=== PATIENT | female | born 1945 | race Caucasian/White ===

== ENCOUNTER 2016-04-19 01:34 | Inpatient (IN) | payer OTHER ==
--- NOTE | 2016-04-19 02:28 | PROVIDER DOCUMENTATION ---
HPI-Respiratory General - General Source: patient - History of Present Illness-Resp Quality of Pain: reports: none Severity in ED: reports: mild Onset/Duration: reports: this morning Timing: reports: intermittent Episode Frequency: occasional episodes Associated Symptoms: reports: cough, shortness of breath, short of breath, wheezing. denies: chest pain/soreness, heart racing, hurts to breathe, hyperventilating, lightheadedness, sore throat, sweaty Similar Symptoms Previously?: Yes <Mao Farmer - Last Filed: 04/19/16 02:48> <Rody Collins - Last Filed: 04/19/16 07:34> - General Chief Complaint: General Adult Stated Complaint: sob Time Seen by Provider: 04/19/16 01:58 Allergies/Adverse Reactions: Patient Allergies Allergy/AdvReac Type Severity Reaction Status Date / Time Penicillins Allergy Mild RASH Verified 04/19/16 03:16 codeine [Codeine] Allergy Unknown Verified 04/19/16 03:16 metronidazole [From Flagyl] Allergy Unknown Verified 04/19/16 03:16 Metronidazole HCl * Allergy Unknown Verified 04/19/16 03:16 [From Flagyl] Sulfa (Sulfonamide Allergy Unknown Verified 04/19/16 03:16 Antibiotics) [Sulfa(Sulfonamide Antibiotics)] benzathine Allergy Unknown Uncoded 04/19/16 03:16 Home Medications: Home Medication List Medication Instructions Recorded Confirmed Last Taken Type Albuterol Sulfate [Proair Hfa] 2 puff IH PRN PRN 01/14/16 04/19/16 04/18/16 History Apixaban [Eliquis] 5 mg PO BID 01/14/16 04/19/16 04/18/16 History Dicyclomine [Bentyl] 10 mg PO BID 01/14/16 04/19/16 04/18/16 History Furosemide [Lasix] 60 mg PO BID 01/14/16 04/19/16 04/18/16 History Hydroxyzine HCl 25 mg PO Q6H PRN PRN 01/14/16 04/19/16 04/18/16 History Levothyroxine [Synthroid] 175 microgm PO DAILY 01/14/16 04/19/16 04/18/16 History Metformin HCl 1,000 mg PO BID 1204/19/16 04/18/16 History Nitroglycerin [Nitrostat] 0.4 mg SL PRN PRN 01/14/16 04/19/16 04/18/16 History Omeprazole 20 mg PO DAILY 01/14/16 04/19/16 04/18/16 History Ondansetron [Zofran] 4 mg PO Q8H PRN PRN 01/14/16 04/19/16 04/18/16 History Polyethylene Glycol 3350 17 gm PO QHS 01/14/16 04/19/16 04/18/16 History Ranolazine [Ranexa] 1,000 mg PO BID 01/14/16 04/19/16 04/18/16 History Sennosides/Docusate Sodium [Senna 4 tab PO BID 01/14/16 04/19/16 04/18/16 History Plus Tablet] Diltiazem L.a. [Cardizem LA] 120 mg PO DAILY #90 tablet 01/22/16 04/19/16 Rx Atorvastatin Calcium [Lipitor] 80 mg PO QHS 02/07/16 04/19/16 04/18/16 History [place]-3 Fatty Acids/Fish Oil [Fish 1 each PO BID 02/07/16 04/19/16 04/18/16 History Oil 1,000 mg Capsule] Sucralfate [Carafate] 1 gm PO 4XDAY 02/07/16 04/19/16 04/18/16 History Aspirin 81 mg PO DAILY #0 chewtab 02/08/16 04/19/16 04/18/16 Rx Alprazolam 0.5 mg PO BID PRN 03/18/16 04/19/16 04/18/16 History Insulin Glargine [Lantus] 30 unit SUBQ QHS 03/18/16 04/19/16 04/18/16 History Metoclopramide HCl [Reglan] 5 mg PO TID 03/18/16 04/19/16 04/18/16 History Potassium Chloride 10 meq PO DAILY 03/18/16 04/19/16 04/18/16 History Prednisone 40 mg PO DAILY 03/18/16 04/19/16 04/18/16 History Tolterodine [Detrol] 4 mg PO HS 02/08/2504/19/16 04/18/16 History Oxycodone HCl/Acetaminophen 1 each PO 4XDAY PRN PRN #20 tablet 03/24/1604/18/16 Rx [Percocet 5-325 mg Tablet] Benzonatate 200 mg PO Q4H PRN 04/19/16 04/19/16 04/18/16 History Fluticasone/Salmeterol [Advair 1 each IH BID 04/19/16 04/19/16 04/18/16 History 250-50 Diskus] Formoterol Fumarate [Foradil] 12 mcg IH BID 04/19/16 04/19/16 04/18/16 History LISINOpril [Prinivil] 5 mg PO DAILY 04/19/16 04/19/16 04/18/16 History Levalbuterol Neb [Xopenex Neb] 1.25 mg INH Q4H PRN PRN 04/19/16 04/19/16 History Megestrol Acetate [Megace] 400 mg PO DAILY 04/19/16 04/19/16 04/18/16 History Pregabalin [Lyrica] 75 mg PO QHS 04/19/16 04/19/16 04/18/16 History Tiotropium Bailey Inhaler 18 mcg IH DAILY 04/19/16 04/19/16 Unknown History [Spiriva] - History of Present Illness-Resp Nature of Presenting Problem: Pt is a 70 yof who presents to ER via EMS with CC of sob/chest pain. Pt reports that she woke up this am feeling sob, checked her O2 sat at home and reports it was 92% and was unable to get comfortable, became worried throughout the day and called EMS. On exam, pt reports that her symptoms have all resolved and would like to go home if her labs are normal. (Mao Farmer) Review of Systems - Adult - REVIEW OF SYSTEMS - ADULT Constitutional: denies: chills, fever, fatique, night sweats, weight gain, weight loss Eyes: reports: no symptoms reported Ears, Nose, Mouth & Throat: reports: no symptoms reported Cardiovascular: denies: chest pain, edema, irregular heart rate, palpitations, poor circulation, syncope Respiratory: reports: shortness of breath. denies: chronic cough, cough, dyspnea on exertion, excessive sputum production, hemoptysis, pleurisy, wheezing Gastrointestinal: denies: abdominal pain, constipation, diarrhea, nausea, vomiting Genitourinary: reports: no symptoms reported Musculoskeletal: reports: no symptoms reported Integumentary: reports: no symptoms reported Neurological: reports: no symptoms reported Psychiatric: reports: no symptoms reported Endocrine: reports: no symptoms reported Hematologic/Lymphatic: reports: no symptoms reported Allergic/Immunologic: reports: no symptoms reported All Other Systems: Reviewed and Negative <Mao Farmer - Last Filed: 04/19/16 02:48> Past History - Adult - PAST MEDICAL HISTORY-ADULT Review of Records: reports: Nursing Assessment Review, Medications Reviewed Cardiovascular: reports: CAD, CHF, HTN, RI Respiratory: reports: COPD (end stage), other (O2 dependent) Musculoskeletal: reports: intervertebral disc disease, osteoporosis Psychiatric: reports: anxiety Endocrine/Immune: reports: Diabetes, thyroid disorder Additional History: 3L of home O2 - PRIOR SURGERIES/PROCEDURES Surgical/Procedure History: reports: CABG, cholecystectomy, hysterectomy, joint replacement, breast - PRIOR HOSPITALIZATIONS Prior Hospitalizations: reports: psychiatric or rehab (rehab 2 mos ago) - IMMUNIZATION STATUS Childhood Immunizations: See Nurse Assessment Flu Vaccine: See Nurse Assessment <Mao Farmer - Last Filed: 04/19/16 02:48> Physical Exam-General - PHYSICAL EXAM-ADULT Initial Vital Signs Reviewed: Yes - CONSTITUTIONAL General Appearance: appears well, alert, no apparent distress. negative: mild distress, moderate distress, lethargic, slow to respond, obtunded, combative - NECK Neck: non-tender, full range of motion, supple. negative: limited range of motion, lymphadenopathy - RESPIRATORY Respiratory: chest non-tender, decreased breath sounds (Left lower lung base). negative: lungs clear, normal breath sounds - CARDIOVASCULAR Cardiovascular: normal peripheral pulses, regular rate, rhythm. negative: bradycardia, tachycardia, irregularly irregular - GASTROINTESTINAL (ABDOMEN) Abdominal Exam: normal bowel sounds, non tender, soft. negative: abnormal bowel sounds, tenderness, mass - MUSCULOSKELETAL Extremity: normal range of motion, non-tender, erythema (LLE), swelling (LLE). negative: normal gait - SKIN Integumentary: erythema (LLE (not new symptom)) - NEUROLOGIC Neurologic: grossly normal, no motor/sensory deficits. negative: focal weakness , motor weakness, sensory deficit - PSYCHIATRIC Psych/Mental Status: normal mood/affect, normal thought content, normal thought process, oriented x 3 <Mao Farmer - Last Filed: 04/19/16 02:48> Progress - EKG 1 Time of EKG reading by physician:: 02:40 EKG Read and Signed by:: Yogi Garcia EKG Interpretation (*Must complete 3 of following elements*): Abnormal (RBBB; Lateral infarct, age undetermined; T wave abnormality, consider inferior ischemia) Rate: 83 Rhythm: Sinus rhythm with short [place] with PSVC and with occasional PVC <Mao Farmer - Last Filed: 04/19/16 02:48> <Rody Collins - Last Filed: 04/19/16 07:34> - PLAN OF CARE/RESULTS Progress/Plan/Lab Results: pt handed off to me by dr garcia to follow up ct. reeval indicates ct neg for pe however pt with diffuse wheezing cough pt on 3l o2 nasal canula however o2 sat declines to 87%. steroids given and additional breathing treatment hospitalist dr moreno accepted for admission 730am. (Rody Collins) Departure - Departure Certified Medical Emergency: Emergent <Mao Farmer - Last Filed: 04/19/16 02:48> - Departure Time of Disposition Order: 07:34 Certified Medical Emergency: Emergent - Critical Care Note Total Time (mins): 35 Critical Care Statement: This patient required my direct personal management to treat or rule out processes, the absence of which, could potentiallly result in sudden, clinically significant life or limb threatening deterioration. <Rody Collins - Last Filed: 04/19/16 07:34> - Departure DIAGNOSIS: SOB (shortness of breath), COPD exacerbation, Respiratory distress Disposition: ADMITTED INPATIENT 09 Condition: Stable Additional Instructions: ED Follow Up Instructions: You have been treated by a care provider in the Emergency Department. These instructions are being provided to you so you can have an understanding of how to care for yourself upon discharge. Upon discharge from the Emergency Department, you are responsible for making arrangements for follow-up care by a physician of your choice. Take all prescribed medications as directed. Return to the Emergency Department immediately for any new or worsening symptoms. You may call the Physician Referral phone number at [phone] to obtain a list of Physicians who are taking new patients. Attestation - Scribe Verification/Attestation Scribe:: Mao Farmer Acting as Scribe for:: Yogi Garcia Scribe documention review:: This chart was documented by a scribe and accurately reflects the service the provider performed and the decisions made by the provider. <Mao Farmer - Last Filed: 04/19/16 02:48> Physician Attestation
[2016-04-19 03:01] LABS: MANUAL DIFF NEEDED? NO
[2016-04-19 03:15] LABS: BASO% 0.4 % (0.0-0.8); EOS# 0.06 X1000 (0.0-0.7); EOS% 1.2 % (0.0-10.0); HEMATOCRIT 36.7 % (37.0-47.0); HEMOGLOBIN 10.9 g/dL (12.0-16.0); IMM GRAN# 0.02 X1000 (0.0-0.04); IMM GRAN% 0.4 % (0.0-0.5); LYMPH# 1.96 X1000 (1.2-3.4); LYMPH% 39.3 % (20.5-51.1); MCHC 29.7 g/dL (33-37); MCV 80.8 FL (81-99); MONO# 0.58 X1000 (0.11-0.59); MONO% 11.6 % (1.7-9.3); MPV 10.8 FL (7.4-10.4); NEUT% 47.1 % (42.2-75.2); PLT 197 X1000 (130-400); RBC 4.54 XMIL (4.2-5.4)
[2016-04-19 03:22] LABS: INR 1.05; PROTIME 10.7 Seconds (9.2-11.7); PTT 24.2 Seconds (22.0-36.0)
[2016-04-19 03:31] LABS: AGAP 12; ALKALINE PHOSPHATASE 54 U/L (32-104); BUN 11 mg/dL (8-22); CALCIUM 9.2 mg/dL (8.8-10.2); CHLORIDE 92 mmol/L (98-107); CK PROFILE 69 U/L (24-173); COSMO 270; GOT 15 U/L (10-30); GPT < 5 U/L (10-36); MAGNESIUM 1.9 mg/dL (1.5-2.7); POTASSIUM 3.8 mmol/L (3.5-5.1); SODIUM 132 mmol/L (136-145); TCO2 28 mmol/L (25-35); TOTAL BILIRUBIN 0.22 mg/dL (0.20-1.00); TOTAL PROTEIN 6.8 g/dL (6.3-8.3)
[2016-04-19] MEDS ORDERED: LASIX IV ONE (03:54)
[2016-04-19 04:06] LABS: URINE MICRO REVIEW NEEDED? NO; URINE SOURCE CLEAN CATCH
[2016-04-19 04:08] LABS: BILIRUBIN URINE NEGATIVE (NEGATIVE); BLOOD URINE TRACE (NEGATIVE); COLOR YELLOW; GLUCOSE URINE 70 mg/dL (NEGATIVE); LEUKOCYTES URINE NEGATIVE (NEGATIVE); NITRITE URINE NEGATIVE (NEGATIVE); PH URINE 6.5; PROTEIN URINE 300 mg/dL (NEGATIVE); SP GRAVITY URINE 1.014; TURBIDITY URINE CLEAR (CLEAR); UROBILINOGEN URINE NORMAL (NORMAL)
[2016-04-19 04:53] LABS: UR EPITHELIAL CELLS <10 /HPF (<10); URINE BACTERIA NEGATIVE /HPF; URINE CULTURE NEEDED? NO; URINE WBC <10 /HPF (<10)
[2016-04-19] MEDS ORDERED: DUONEB (A & A) INH ONE ×2 (05:44→07:21)
[2016-04-19] MEDS ORDERED: SOLU-MEDROL IV ONE (07:21)
[2016-04-19] MEDS ORDERED: TESSALON PO PRN (08:43)
[2016-04-19] MEDS ORDERED: VENTOLIN HFA INH PRN (08:43)
[2016-04-19] MEDS ORDERED: ZOFRAN PO PRN (08:43)
[2016-04-19] MEDS ORDERED: HYDROXYZINE PO PRN (08:43)
[2016-04-19] MEDS ORDERED: NITROGLYCERIN SL PRN (08:43)
[2016-04-19] MEDS ORDERED: NICODERM PATCH TD PRN (08:43)
[2016-04-19] MEDS: PERCOCET-5 PO PRN ×2 (08:58→14:41)
--- NOTE | 2016-04-19 08:58 | Diag Imaging Result Document ---
PROCEDURE NAME: ANGIOGRAM/PULMONARY ARTERIES - 04/19/2016 CT ANGIOGRAM OF PULMONARY ARTERIES WITH CONTRAST: Exam performed with intravenous contrast. A dose-reduction protocol was used. Axial and reformatted coronal images are obtained. COMPARISON: Compared with the CT angiogram of pulmonary arteries of 03/08/[address] thorax without contrast 01/18/2016. FINDINGS: There are no filling defects identified in the pulmonary arteries. There is no indication of aortic dissection. There is cardiomegaly with mild interval increase in heart size. There is a calcified granuloma from old granulomatous disease at the left base. There is an 8 mm nodular opacity or scar at the posterior right upper lobe abutting the major fissure. This appears slightly more prominent compared to previous exam, although this could possibly relate to differences in technical factors. There is scarring at the right middle lobe and inferior left lingula. There is no acute consolidation, pleural effusion, or pneumothorax identified. IMPRESSION: 1. No evidence of pulmonary embolism. 2. Cardiomegaly with mild interval increase in heart size. 3. Mild increased prominence of small nodular opacity or scar at posterior right upper lobe abutting the major fissure. Follow-up CT thorax in about 3 months or correlation with PET-CT is recommended. A [facility] physician provided preliminary results at 7:03 a.m. on 04/19/2016. [facility]
[2016-04-19] MEDS ORDERED: PREDNISONE PO SCH (09:00)
--- NOTE | 2016-04-19 09:04 | ED EKG INTERP ---
EKG Interpretation - EKG Time of EKG reading by physician:: 08:10 EKG Read and Signed by:: Rody Collins EKG Interpretation (*Must complete 3 of following elements*): Abnormal Rate: 87 (and premature atrial complexes; left axis deviation; minimal voltave criteria for LVH, may be normal variant) Rhythm: sinus rhythm with short MO with occasional premature ventricular complexes QRS: RBB Attestation - Scribe Verification/Attestation Scribe:: Kimberlee Plata Acting as Scribe for:: Rody Collins Scribe documention review:: This chart was documented by a scribe and accurately reflects the service the provider performed and the decisions made by the provider.
[2016-04-19] MEDS ORDERED: NS NEB INH PRN (09:16)
[2016-04-19] MEDS: BENTYL PO SCH ×2 (09:52→22:05)
[2016-04-19] MEDS: ASPIRIN PO SCH (09:52)
[2016-04-19] MEDS: CARAFATE PO SCH ×4 (09:54→22:04)
[2016-04-19] MEDS: CARDIZEM LA PO SCH (09:54)
[2016-04-19] MEDS: ELIQUIS PO SCH ×2 (09:55→22:05)
[2016-04-19] MEDS: FISH OIL CONCENTRATE PO SCH ×2 (09:56→22:04)
[2016-04-19] MEDS: MEGACE LIQUID PO SCH (09:57)
[2016-04-19] MEDS: PERICOLACE PO SCH ×2 (09:57→22:04)
[2016-04-19] MEDS: PRILOSEC PO SCH (09:59)
[2016-04-19] MEDS: REGLAN PO SCH ×3 (10:00→17:02)
[2016-04-19] MEDS: PRINIVIL PO SCH (10:00)
[2016-04-19] MEDS: RANEXA PO SCH ×2 (10:02→22:04)
[2016-04-19] MEDS: SYNTHROID PO SCH (10:03)
[2016-04-19] MEDS: KEFZOL 2 GM/D5W 50 ML IV SCH ×2 (11:09→17:03)
[2016-04-19] MEDS: HUMALOG SUBQ SCH ×3 (11:27→22:09)
[2016-04-19 11:55] LABS: ALLEN TEST NO; BE 6.3 mmoll (-3.0-3.0); BLOOD TYPE ARTERIAL; DRAW SITE R BRACHIAL; METHB 1.6 % (0.0-1.5); O2(CT) 13.1 mL/dL (15.0-23.0); PCO2(98.6) 42 mmHg (35-45); PO2(98.6) 60 mmHg (60-100); SAMPLE BLOOD; SAO2 94.2 % (95.0-100.0); THB 10.4 g/dL (11.5-17.4); pH(98.6) 7.47 (7.35-7.45)
[2016-04-19 11:56] LABS: MODALITY CANNULA
[2016-04-19] MEDS ORDERED: KEFZOL IV SCH (13:00)
--- NOTE | 2016-04-19 14:16 | HISTORY AND PHYSICAL ---
CHIEF COMPLAINT: "Smothering and shortness of breath." HISTORY OF PRESENT ILLNESS: Mrs. Marlow is a 70-year-old female who is well known to our service. She has a history of COPD requiring oxygen, CAD status post CABG, type 2 diabetes now insulin-dependent and multiple others as well as continued nicotine dependence who presents with fairly acute onset of what seems to be orthopnea and shortness of breath. She states she was in her house last night and had to turn up the heat as it got cold, once the heat was turned up she began to have some shortness of breath, she turned the heat back down and began to feel better. She was able to go to sleep for a little while but woke up around midnight in a state of what she calls smothering. She was short of breath and could not get comfortable. She denied any chest pain. She was not coughing. There was no sputum production. She denies any recent fevers or chills, she is on current IV antibiotics prescribed by Dr. Boswell for right heel infection for which she has had an I and D done by Dr. Malagon a few weeks back. She came to the ER today for evaluation. Her laboratory data is largely unremarkable. She does have elevated proBNP, D-dimer was mildly elevated which prompted a CTA of the chest which reads chronic changes but nothing acute and no PE noted. She does report mild lower extremity edema, orthopnea and shortness of breath so were going to admit her now for CHF exacerbation versus COPD exacerbation. PAST MEDICAL HISTORY: 1. Coronary artery disease. 2. Diabetes mellitus requiring insulin. 3. Congestive heart failure known EF 55%. 4. Chronic left ischial tuberosity pressure ulcer. 5. COPD requiring oxygen. 6. GERD. 7. Obstructive sleep apnea. 8. History of CVA. 9. Nicotine dependence. 10. Recent heel diabetic foot ulcer status post I and D. 11. Atrial fibrillation chronic. SURGICAL HISTORY: CABG, cholecystectomy, hysterectomy, breast reduction, right knee surgery, left heel I and D. SOCIAL HISTORY: Patient continues to smoke a pack to 2 packs of cigarettes a day. She denies alcohol, illicit drug use. She has a common law . FAMILY HISTORY: Noncontributory. REVIEW OF SYSTEMS: Fourteen-point review of systems obtained found to be negative with the exception of the HPI. ALLERGIES: Penicillin, codeine, Flagyl, sulfa, benzathine. HOME MEDICATIONS: Ancef 2 g t.i.d., ProAir HFA 2 puffs inhaled as needed, Xanax 0.5 mg b.i.d. as needed, Eliquis 5 mg b.i.d., Lipitor 80 mg at bedtime, Tessalon Perles every 4 hours as needed, Bentyl 10 mg b.i.d., Advair 250/50 Diskus 1 inhaled b.i.d., Foradil 12 mcg inhaled twice a day, Lasix 60 mg b.i.d., hydroxyzine 25 mg every 6 hours as needed, Lantus 30 units subcu at bedtime, Prinivil 5 mg daily, Xopenex 1.25 mg inhaled every 4 hours as needed, Synthroid 175 mcg daily, Megace 400 mg p.o. daily, metformin 1000 mg b.i.d., Reglan 5 mg t.i.d. Nitrostat 0.4 mg sublingual as needed, fish oil b.i.d., omeprazole 20 mg daily, Zofran 4 mg p.o. every 8 hours as needed, polyethylene glycol 17 g at bedtime, KCl 10 mEq p.o. daily, prednisone 40 mg daily, Lyrica 75 mg p.o. at bedtime, Ranexa 1000 mg b.i.d., Senokot 4 tabs daily, Carafate 1 g 4 times a day, Spiriva 18 mcg inhaled daily, Detrol 4 mg p.o. at bedtime, aspirin 81 mg daily, Cardizem long-acting 120 mg daily, Percocet 5 four times a day as needed for pain. PHYSICAL EXAMINATION: VITAL SIGNS: Blood pressure is 111/51, heart rate is 86, respiratory rate is 24, O2 saturation is 96% on room air, temperature is 98 degrees. GENERAL: This is a chronically ill disheveled-appearing 70-year-old female lying in hospital bed no acute distress. NEUROLOGIC: The patient is awake, alert and oriented. She follows commands without focal deficits. HEENT: Head is atraumatic and normocephalic. Her pupils are equal, round, reactive to light. Oral mucosa is dry. Trachea is midline. No JVD. No carotid bruits. CHEST: Coarse throughout, no increased work of breathing and some mild inspiratory wheezing bilaterally. CV: Regular rate and rhythm. S1-S2 is noted. No murmurs, gallops, clicks, or rubs. GI: Soft, nondistended, nontender. Bowel sounds are positive. EXTREMITIES: 1+ edema, diminished pulses. Right heel wrapped with Peyman bandage that is clean, dry and intact. NEUROVASCULAR: Is intact distally. DIAGNOSTIC DATA: CTA of the chest shows chronic changes nothing acute, chest x-ray over read is pending. EKG atrial fibrillation, rate controlled. Nonspecific ST and T changes diffusely. WBC 4.99, hemoglobin 10.9, hematocrit 36.7, platelet count 197,000. PT 10.7, INR 1.05, sodium 132, potassium 3.8, chloride 92, CO2 28, anion gap 12, BUN 11, creatinine 0.8, glucose 202. LFTs within normal limits. Troponin and CKs are negative. ProBNP 593, albumin 3. UA is negative for any acute process. ASSESSMENT AND PLAN: 1. Acute on chronic respiratory failure: Multifactorial secondary to chronic obstructive pulmonary disease and congestive heart failure exacerbations. We will treat underlying processes and monitor respiratory status closely. 2. Chronic obstructive pulmonary disease exacerbation: Will start the patient on IV steroids and bronchodilators. 3. Metabolic encephalopathy. Will check an ammonia and a head CT without contrast. Neuro checks. 4. Acute on chronic heart failure: Will add IV diuresis and take away her p.o. for now. Monitor strict I's and Os and daily weights. An echocardiogram was done around 6 months ago which showed normal left ventricular ejection fraction . 5. Chronic atrial fibrillation: Chronic and stable, continue home medications including Eliquis. 6. Diabetes mellitus: Chronic and stable, continue her home medications with the exception of her metformin and add pattern sugars and sliding scale insulin. 7. Left heel diabetic foot ulcer: Chronic and stable. Will also continue her Ancef which should cover her COPD exacerbation as well. 8. Gastroesophageal reflux disease: Chronic and stable. Continue home medications. 9. DVT prophylaxis. The patient is on eliquis. Dictated by KEYON Madrigal for Fadia Gr MD The patient was seen and examined by me. I agree with the assessment and plan as dictated. DEBBIE
--- NOTE | 2016-04-19 14:31 | Diag Imaging Result Document ---
PROCEDURE NAME: CHEST-1 VIEW - 04/19/2016 ONE VIEW CHEST: COMPARISON: 03/24/2016. FINDINGS: There is mild cardiomegaly. There are sternal wires from previous surgery again seen. There is scarring and/or subsegmental atelectasis at the right middle lobe and left lingula. There is mild pleural thickening at the left costophrenic sulcus. There is no dense consolidation, substantial pleural effusion, or pneumothorax identified. PICC line remains in place. IMPRESSION: Mild cardiomegaly. Mild scarring or subsegmental atelectasis at right middle lobe and left lingula.
[2016-04-19] MEDS: LASIX IV SCH (17:02)
--- NOTE | 2016-04-19 17:14 | Diag Imaging Result Document ---
PROCEDURE NAME: HEAD W/O CONTRAST - 04/19/2016 CT OF THE HEAD WITHOUT CONTRAST: FINDINGS: A dose reduction protocol was used. Compared to 03/10/2016. There is no evidence of hemorrhage, mass effect, midline shift, or hydrocephalus. There are moderate chronic microvascular ischemic changes. There is no indication of recent infarct, although acute infarcts may not be immediately visible. There is a small calcified meningioma or osteoma at the right frontal region which is stable. IMPRESSION: Moderate chronic microvascular ischemic changes. No visible acute process. No hemorrhage or mass effect.
[2016-04-19] MEDS ORDERED: BENADRYL PO ONE (18:15)
[2016-04-19] MEDS: ADVAIR 250/50 DISKUS INH SCH (19:16)
[2016-04-19] MEDS: XOPENEX NEB INH PRN (19:16)
[2016-04-19] MEDS ORDERED: FORADIL INH SCH (19:30)
[2016-04-19] MEDS ORDERED: LYRICA PO SCH (21:00)
[2016-04-19] MEDS ORDERED: LANTUS SUBQ SCH (21:00)
[2016-04-19] MEDS ORDERED: TYLENOL PO PRN (21:12)
[2016-04-19] MEDS: MIRALAX PO SCH (22:03)
[2016-04-19] MEDS: LIPITOR PO SCH (22:04)
[2016-04-19] MEDS ORDERED: INSULIN PEN NEEDLES ONE (23:00)
[2016-04-19] MEDS: DETROL PO SCH (23:14)
[2016-04-19] MEDS: MYCOSTATIN POWDER TOP SCH (23:16)
[2016-04-20] MEDS: XANAX PO PRN (01:23)
[2016-04-20] MEDS: LASIX IV SCH ×2 (04:38→16:34)
[2016-04-20] MEDS: KEFZOL 2 GM/D5W 50 ML IV SCH ×3 (04:38→17:02)
[2016-04-20] MEDS: REGLAN PO SCH ×3 (06:30→16:34)
[2016-04-20] MEDS: PRILOSEC PO SCH (06:30)
[2016-04-20] MEDS: SOLU-MEDROL IV SCH ×2 (06:31→20:29)
[2016-04-20] MEDS: HUMALOG SUBQ SCH ×4 (06:37→20:31)
[2016-04-20 07:38] LABS: HEMATOCRIT 33.3 % (37.0-47.0); HEMOGLOBIN 9.7 g/dL (12.0-16.0); MCH 23.8 PG (27-31); MCHC 29.1 g/dL (33-37); MCV 81.6 FL (81-99); MPV 11.1 FL (7.4-10.4); RBC 4.08 XMIL (4.2-5.4)
[2016-04-20 07:50] LABS: HEMOGLOBIN A1C 7.7 % (4.8-6.0)
[2016-04-20] MEDS: XOPENEX NEB INH PRN ×4 (08:16→19:25)
[2016-04-20] MEDS: SPIRIVA INH SCH (08:16)
[2016-04-20] MEDS: ADVAIR 250/50 DISKUS INH SCH ×2 (08:17→19:25)
[2016-04-20 08:18] LABS: AGAP 8; BUN 20 mg/dL (8-22); CHLORIDE 94 mmol/L (98-107); COSMO 275; POTASSIUM 3.7 mmol/L (3.5-5.1); SODIUM 131 mmol/L (136-145); TCO2 29 mmol/L (25-35)
[2016-04-20] MEDS: PERCOCET-5 PO PRN ×2 (10:46→20:22)
[2016-04-20] MEDS: RANEXA PO SCH ×2 (10:47→20:22)
[2016-04-20] MEDS: FISH OIL CONCENTRATE PO SCH ×2 (10:47→20:22)
[2016-04-20] MEDS: SYNTHROID PO SCH (10:47)
[2016-04-20] MEDS: PRINIVIL PO SCH (10:48)
[2016-04-20] MEDS: DIFLUCAN PO SCH (10:48)
[2016-04-20] MEDS: CARAFATE PO SCH ×4 (10:48→20:22)
[2016-04-20] MEDS: ELIQUIS PO SCH ×2 (10:48→20:22)
[2016-04-20] MEDS: ASPIRIN PO SCH (10:48)
[2016-04-20] MEDS: CARDIZEM LA PO SCH (10:48)
[2016-04-20] MEDS: PERICOLACE PO SCH ×2 (10:48→20:22)
[2016-04-20] MEDS: BENTYL PO SCH ×2 (10:48→20:22)
[2016-04-20] MEDS: MEGACE LIQUID PO SCH (10:49)
[2016-04-20] MEDS: MYCOSTATIN POWDER TOP SCH ×2 (10:49→20:31)
[2016-04-20] MEDS: NS 1,000 ML IV SCH (12:04)
--- NOTE | 2016-04-20 14:30 | PROGRESS NOTE ---
DATE: 04/20/2016 SUBJECTIVE: The patient is awake and alert. She does complain of some coughing but otherwise states that she feels okay. OBJECTIVE: Vital Signs: Temperature 98 degrees, blood pressure 130/64, heart rate 76, respirations 18, O2 saturation is 97% on 4 L nasal cannula. General: This is an elderly female, lying in bed, in no acute distress. Head: Normocephalic, atraumatic. Heart: S1, S2. Normal. Regular rate and rhythm. Lungs: Coarse breath sounds. No crackles. No rales. Abdomen: Positive bowel sounds. Soft, nontender, nondistended. Extremities: No edema. No cyanosis. No calf tenderness. Neurologic: The patient is alert and oriented x3. No focal neurologic deficits noted. LABS: White blood cell count 4.8, hemoglobin 9.7, hematocrit 33, platelets 190,000. Sodium 131, potassium 3.7, chloride 94, CO2 29, BUN 20, creatinine 0.8, glucose 277. ASSESSMENT AND PLAN: 1. Acute chronic obstructive pulmonary disease exacerbation. Continue on IV steroids, scheduled bronchodilator therapy, and IV antibiotics. 2. Uncontrolled insulin-dependent diabetes mellitus. We will continue on sliding scale insulin. We will also add Levemir. The patient's hemoglobin A1c is 7.7. 3. Tobacco dependence. The patient has been counseled about smoking cessation. 4. Morbid obesity. Aware. 5. Hypertension. Controlled. 6. Anemia. The patient's hemoglobin and hematocrit are stable. 7. Hyponatremia. Will start the patient on gentle IV fluid hydration and repeat the sodium. 8. Hypothyroidism. Continue on Synthroid. 9. Paroxysmal atrial fibrillation. Continue on Cardizem and Eliquis. 10. Will consult physical therapy.
[2016-04-20] MEDS: MUCOMYST 20% INH SCH (19:25)
[2016-04-20] MEDS: LIPITOR PO SCH (20:22)
[2016-04-20] MEDS: DETROL PO SCH (20:23)
[2016-04-20] MEDS: MIRALAX PO SCH (20:24)
[2016-04-20] MEDS ORDERED: LYRICA PO SCH (21:00)
[2016-04-20] MEDS ORDERED: LEVEMIR SUBQ SCH (21:00)
[2016-04-21] MEDS: NS 1,000 ML IV SCH (01:47)
[2016-04-21] MEDS: KEFZOL 2 GM/D5W 50 ML IV SCH ×2 (01:47→09:38)
[2016-04-21] MEDS: XANAX PO PRN (02:16)
[2016-04-21] MEDS: PERCOCET-5 PO PRN (02:16)
[2016-04-21] MEDS: LASIX IV SCH ×2 (03:12→17:05)
[2016-04-21] MEDS: SOLU-MEDROL IV SCH (06:23)
[2016-04-21] MEDS: HUMALOG SUBQ SCH ×4 (06:23→17:02)
[2016-04-21] MEDS: REGLAN PO SCH ×3 (06:23→17:15)
[2016-04-21] MEDS: PRILOSEC PO SCH (06:23)
[2016-04-21 07:42] LABS: HEMATOCRIT 32.3 % (37.0-47.0); HEMOGLOBIN 9.4 g/dL (12.0-16.0); MCH 23.6 PG (27-31); MCHC 29.1 g/dL (33-37); MPV 10.7 FL (7.4-10.4); RBC 3.99 XMIL (4.2-5.4)
--- NOTE | 2016-04-21 07:57 | Diag Imaging Result Document ---
PROCEDURE NAME: CHEST-PORTABLE - 04/21/2016 PORTABLE CHEST X-RAY, 04/21/2016: COMPARISON: 04/19/2016. FINDINGS: Stable right PICC line. Stable cardiomegaly. Stable pulmonary vascular congestion. Stable small infiltrate or scarring at the right hilum. No new infiltrates. IMPRESSION: No change from prior.
[2016-04-21 08:04] LABS: AGAP 11; BUN 22 mg/dL (8-22); CHLORIDE 96 mmol/L (98-107); COSMO 281; POTASSIUM 3.6 mmol/L (3.5-5.1); SODIUM 133 mmol/L (136-145); TCO2 26 mmol/L (25-35)
[2016-04-21] MEDS: SPIRIVA INH SCH (08:13)
[2016-04-21] MEDS: ADVAIR 250/50 DISKUS INH SCH (08:13)
[2016-04-21] MEDS: XOPENEX NEB INH PRN (08:13)
[2016-04-21] MEDS: MUCOMYST 20% INH SCH (08:13)
[2016-04-21] MEDS ORDERED: LEVEMIR SUBQ SCH (09:00)
[2016-04-21] MEDS: PERICOLACE PO SCH (09:32)
[2016-04-21] MEDS: FISH OIL CONCENTRATE PO SCH (09:32)
[2016-04-21] MEDS: SYNTHROID PO SCH (09:32)
[2016-04-21] MEDS: PRINIVIL PO SCH (09:32)
[2016-04-21] MEDS: BENTYL PO SCH (09:32)
[2016-04-21] MEDS: ELIQUIS PO SCH (09:32)
[2016-04-21] MEDS: CARDIZEM LA PO SCH (09:32)
[2016-04-21] MEDS: MEGACE LIQUID PO SCH (09:32)
[2016-04-21] MEDS: DIFLUCAN PO SCH (09:33)
[2016-04-21] MEDS: RANEXA PO SCH (09:33)
[2016-04-21] MEDS: CARAFATE PO SCH ×3 (09:33→17:14)
[2016-04-21] MEDS: ASPIRIN PO SCH (09:33)
[2016-04-21] MEDS: MYCOSTATIN POWDER TOP SCH (09:42)
[2016-04-21] MEDS ORDERED: INSULIN PEN NEEDLES ONE (16:55)
[2016-04-21 17:59] VITALS: BP 119/93
--- NOTE | 2016-04-22 15:17 | DISCHARGE SUMMARY ---
ADMISSION DATE: 04/19/2016 DISCHARGE DATE: 04/21/2016 DISCHARGE DIAGNOSES: 1. Chronic obstructive pulmonary disease exacerbation. 2. Diastolic heart failure. 3. Diabetes, uncontrolled. 4. Right heel ulcer, on IV antibiotics. 5. Morbid obesity. 6. Hypertension. 7. Hyponatremia. 8. Hypothyroidism. 9. Paroxysmal atrial fibrillation. CONSULTATIONS: None. HOSPITAL COURSE: Briefly, this is a 70-year-old female who has been here multiple times. She presents with shortness of breath. She has been on IV Kefzol apparently for right heel ulcer per Dr. Boswell. She came in. CTA showed no PE, no pneumonia, but she had wheezing and some lower extremity edema, so, she was admitted for treatment. She was placed on IV steroids, bronchodilators. She had some confusion on admission which improved with improvement in her respiratory status. She was stabilized. On 04/21/2016, she was breathing at her baseline. Saturations were 97% on 3 L. She was afebrile. Her laboratory work showed a white count 4.5, hemoglobin and hematocrit and 32. Platelets were normal. CMP was okay. Her A1c was 7.7, although she had some mild elevation in her glucose. DISCHARGE MEDICATIONS: 1. Lipitor 80. 2. Sucralfate 1 g q.i.d. 3. Fish oil b.i.d. 4. Xanax 0.5 b.i.d. 5. Detrol 4 at bedtime. 6. Lantus 30 at bedtime. 7. Reglan 5 t.i.d. 8. Klor-Con 10 daily. 9. Prednisone will be a taper; it looks like she is on 40 daily, but I think we will do a 40 for a week, 30 for a week, 20 for a week, 10 daily. 10. q.4. 11. Xopenex q. 4. 12. Advair 1 b.i.d. 13. Foradil 12 b.i.d. 14. Kefzol 2 g IV t.i.d. This dosing is per Dr. Boswell. Need to complete her course. 15. Megace 400 daily. 16. Lyrica 75 daily. 17. Prinivil 5 daily. 18. Spiriva 18 daily. 19. ProAir p.r.n. 20. Hydroxyzine 25 q. 6. 21. Nitrostat p.r.n. 22. Zofran. 23. Eliquis 5 b.i.d. 24. Bentyl 10 b.i.d. 25. Lasix 60 b.i.d. 26. Metformin 1 g b.i.d. 27. Prilosec 20 daily. 28. MiraLAX 17 daily. 29. Ranexa 1 g b.i.d. 30. Senokot 4 b.i.d. 31. Synthroid 175 daily. 32. Aspirin 81 daily. 33. Percocet p.r.n. 34. Cardizem-LA 120 daily. DISCHARGE CONDITION: Stable. PLAN: We did set her up for a Palliative Care consult. We will need to resume her home IV antibiotics as done previously for discharge. Please for copy is Dr. Elbert Diaz initial ER and Dr. wheeler and. TIME SPENT ON DISCHARGE: 32 minutes.
== END 2016-04-21 19:00 | disposition home health service (06) | DRG 190 ==
LOC: ED 01:34 → EDIPHOLD 08:39 → 3N 13:38
PROVIDERS: ATTEND Internal Medicine
DX: J44.1 Chronic obstructive pulmonary disease with (acute) exacerbation (principal); I50.33 Acute on chronic diastolic (congestive) heart failure; J96.10 Chronic respiratory failure, unspecified whether with hypoxia or hypercapnia; E11.621 Type 2 diabetes mellitus with foot ulcer; L97.429 Non-pressure chronic ulcer of left heel and midfoot with unspecified severity; E87.1 Hypo-osmolality and hyponatremia; E11.65 Type 2 diabetes mellitus with hyperglycemia; I11.0 Hypertensive heart disease with heart failure; Z99.81 Dependence on supplemental oxygen; E66.01 Morbid (severe) obesity due to excess calories; D64.9 Anemia, unspecified; I25.10 Atherosclerotic heart disease of native coronary artery without angina pectoris; I48.0 Paroxysmal atrial fibrillation; I25.2 Old myocardial infarction; E03.9 Hypothyroidism, unspecified; K21.9 Gastro-esophageal reflux disease without esophagitis; G47.33 Obstructive sleep apnea (adult) (pediatric); M81.0 Age-related osteoporosis without current pathological fracture; F41.9 Anxiety disorder, unspecified; F17.210 Nicotine dependence, cigarettes, uncomplicated; Z79.899 Other long term (current) drug therapy; Z79.82 Long term (current) use of aspirin; Z79.01 Long term (current) use of anticoagulants; Z79.4 Long term (current) use of insulin; Z86.73 Personal history of transient ischemic attack (TIA), and cerebral infarction without residual deficits; Z68.33 Body mass index [BMI] 33.0-33.9, adult; Z95.1 Presence of aortocoronary bypass graft
CPT/HCPCS: 36415; 51702; 70450; 71010; 71275; 80048; 80053; 81001; 82140; 82306; 82550; 82805; 82948; 83036; 83735; 83880; 84100; 84484; 85025; 85027; 85379; 85610; 85730; 87070; 87077; 87186; 87205; 94640; 94761; 94799; 96365; 96375; J0690; J1815; J1940; J2920; J2930; J7030; J7512; Q9967; S0179

== ENCOUNTER 2016-05-31 01:24 | Inpatient (IN) ==
[2016-05-31] MEDS ORDERED: ADENOCARD ONE (01:27)
[2016-05-31] MEDS ORDERED: ADENOCARD IV ONE ×2 (01:29→01:32)
[2016-05-31] MEDS ORDERED: CARDIZEM ONE ×2 (01:35→01:44)
[2016-05-31] MEDS ORDERED: NS 1,000 ML ONE (01:38)
[2016-05-31] MEDS ORDERED: ASPIRIN PO STA (01:45)
[2016-05-31] MEDS ORDERED: CARDIZEM IV ONE ×2 (01:47→02:42)
[2016-05-31] MEDS ORDERED: DUONEB (A & A) INH ONE (01:52)
[2016-05-31] MEDS ORDERED: MORPHINE IV ONE (01:52)
[2016-05-31] MEDS ORDERED: ZOFRAN IV ONE (01:52)
[2016-05-31 02:10] LABS: MANUAL DIFF NEEDED? NO
[2016-05-31 02:19] LABS: BASO% 0.4 % (0.0-0.8); EOS# 0.04 X1000 (0.0-0.7); EOS% 0.4 % (0.0-10.0); HEMOGLOBIN 10.9 g/dL (12.0-16.0); IMM GRAN# 0.04 X1000 (0.0-0.04); IMM GRAN% 0.4 % (0.0-0.5); LYMPH# 2.28 X1000 (1.2-3.4); LYMPH% 21.4 % (20.5-51.1); MCH 22.2 PG (27-31); MCHC 29.5 g/dL (33-37); MCV 75.5 FL (81-99); MONO# 0.97 X1000 (0.11-0.59); MONO% 9.1 % (1.7-9.3); MPV 10.3 FL (7.4-10.4); NEUT% 68.3 % (42.2-75.2); PLT 230 X1000 (130-400)
[2016-05-31] MEDS ORDERED: CARDIZEM 100 MG/NS 100 MG/100 ML IVPB ONE (02:47)
[2016-05-31 02:58] LABS: AGAP 18; ALBUMIN 3.3 g/dL (3.5-5.0); ALKALINE PHOSPHATASE 106 U/L (32-104); BUN 26 mg/dL (8-22); CALCIUM 8.2 mg/dL (8.8-10.2); CHLORIDE 93 mmol/L (98-107); CK PROFILE 76 U/L (24-173); COSMO 284; GOT 93 U/L (10-30); GPT 44 U/L (10-36); MAGNESIUM 1.9 mg/dL (1.5-2.7); POTASSIUM 4.4 mmol/L (3.5-5.1); SODIUM 132 mmol/L (136-145); TCO2 21 mmol/L (25-35); TOTAL PROTEIN 6.3 g/dL (6.3-8.3)
[2016-05-31] MEDS ORDERED: HUMULIN R SUBQ ONE (03:00)
[2016-05-31 03:25] LABS: INR 1.18 (0.86-1.15); PROTIME 15.3 Seconds (12.1-15.5)
[2016-05-31] MEDS ORDERED: LASIX IV ONE (03:25)
[2016-05-31 03:26] LABS: PTT PL 34.2 Seconds (22.6-43.9)
[2016-05-31] MEDS ORDERED: HUMULIN R (PARKWAY) ONE (03:37)
[2016-05-31] MEDS: CARDIZEM 100 MG/NS 100 MG/100 ML IVPB IV SCH ×3 (07:40→18:43)
[2016-05-31] MEDS ORDERED: LASIX ONE (07:43)
--- NOTE | 2016-05-31 09:27 | EKG Report ---
Test Performed on : 05/31/2016 09:17:21 AM Test Reason : a.flutter vs a.fib Blood Pressure : / mmHG Vent. Rate : 114 BPM Atrial Rate : 127 BPM P-R Int : 192 ms QRS Dur : 146 ms QT Int : 336 ms P-R-T Axes : 000 -72 -04 degrees QTc Int : 463 ms Atrial flutter with 2 to 1 block Left axis deviation Right bundle branch block Minimal voltage criteria for LVH, may be normal variant Abnormal ECG When compared with ECG of 31-MAY-2016 01:36, Sinus rhythm. has replaced Atrial flutter. ST no longer depressed in Inferior leads ST no longer depressed in Lateral leads Confirmed by Lul Gillespie MD ([id number]) on 06/04/2016 9:53:22 PM
--- NOTE | 2016-05-31 09:49 | Diag Imaging Result Document ---
PROCEDURE NAME: CHEST-PORTABLE - 05/31/2016 PORTABLE CHEST: COMPARISON: 04/21/2016. FINDINGS: Previously there was a right sided PICC line. There has been removed. Sternal wires are present. The heart remains enlarged. The patient is rotated to the left. No pleural effusions identified. No consolidation. Mild central vascular prominence similar to the prior exam. IMPRESSION: No significant change.
--- NOTE | 2016-05-31 10:59 | CONSULTATION ---
DATE OF CONSULTATION: 05/31/2016 IMPRESSION: 1. Recurrent atrial flutter with rapid ventricular rate. Patient now with mild tachycardia on intravenous Cardizem. Patient previously on Cardizem CD 120 mg daily. Patient also has been on long-term anticoagulation with Eliquis. 2. Severe chronic obstructive pulmonary disease, oxygen dependent. 3. Chronic ongoing heavy cigarette use. 4. Atherosclerotic coronary disease. 5. Hypertension. 6. Obesity. 7. Recent hospitalization last month for chronic obstructive pulmonary disease exacerbation. Patient also had a right heel ulcer at that time treated with antibiotics. RECOMMENDATIONS: 1. Transition back to oral Cardizem at increased dose. It may be helpful to switch to oral Cardizem regular release to facilitate transition. Thereafter, dose can be titrated upward and, at time of discharge, patient can be placed back on sustained release Cardizem. 2. Continue Eliquis. 3. Smoking cessation strongly advised. 4. Conservative cardiovascular plans in light of patient's severe comorbidities. HISTORY: This 70-year-old, white female, with past history of paroxysmal atrial arrhythmias including atrial fibrillation/atrial flutter, severe COPD, atherosclerotic coronary disease, diabetes mellitus requiring insulin, and chronic ongoing heavy cigarette use, was admitted through the ER last night after she presented with severe lightheadedness and tachycardia. She is found to be in atrial fibrillation with rapid ventricular rate. She was started on intravenous Cardizem and, as heart rate slowed, she appeared to be in atrial flutter. She denies any chest pain. She has chronic cough productive of white sputum. She also has chronic dyspnea. There has been no orthopnea. Unfortunately, she continues to smoke 2 packs of cigarettes per day. She was recently hospitalized last month for COPD exacerbation. She was also treated for left heel ulcer during her stay. She denies noncompliance with medications, but also relates that her family is in charge of arranging her medications. PAST MEDICAL HISTORY: 1. Recurrent atrial arrhythmias including atrial flutter and atrial fibrillation, treated with rate control and long-term anticoagulation. 2. Atherosclerotic coronary disease with history of previous coronary bypass grafting. Patient continues without angina. 3. Severe COPD requiring home oxygen. 4. Diabetes mellitus requiring insulin. 5. Gastroesophageal reflux. 6. Obstructive sleep apnea. 7. Obesity. 8. Previous cerebrovascular accident. 9. Recent diabetic foot ulcer. PAST SURGICAL HISTORY: 1. Coronary bypass grafting. 2. Cholecystectomy. 3. Hysterectomy. 4. Breast reduction surgery. 5. Right knee surgery. 6. Left heel incision and drainage. ALLERGIC: She is allergic or intolerant to penicillin, codeine, Flagyl, sulfa and benzathine. MEDICATIONS PRIOR TO ADMISSION: As listed. It is noteworthy that she has been on Eliquis, baby aspirin daily as well as Cardizem long-acting 120 mg daily, in addition to her other medications. SOCIAL HISTORY: She lives with her son. She smokes 2 packs cigarettes per day. She does not use alcohol. FAMILY HISTORY: Negative for premature coronary disease. REVIEW OF SYSTEMS: Pulmonary: Noteworthy for chronic exertional dyspnea, as well as cough productive of white sputum. Gastrointestinal: Noteworthy for gastroesophageal reflux, but otherwise negative. Constitutional: Negative for fever. Remainder of review of systems negative/noncontributory with 14 total systems reviewed. PHYSICAL EXAMINATION: General: This is a chronically ill-appearing, obese, older female in no distress on supplemental oxygen per nasal cannula. Vital Signs: Blood pressure 106/57, heart rate 110 and irregular with ECG monitor showing atrial flutter. HEENT Exam: Extraocular movements intact. Mucous membranes are moist. Neck: Supple without discernible jugular venous distention. There are no carotid bruits. Chest: Auscultation of the chest reveals diminished breath sounds diffusely. There are a few diffuse expiratory wheezes. Cardiac Exam: Reveals an irregular rate and rhythm without appreciable murmur or gallop. Abdomen: Soft, nontender. Extremities: Without edema. Neurologic Exam: Reveals her to be alert and fully oriented. Speech is fluent. She moves all 4 extremities equally well. Skin: Warm and dry. Psychiatric: Exam reveals her mood to be appropriate. DIAGNOSTICS: ECG obtained this morning demonstrates atrial flutter with heart rate 114 beats per minute, left axis deviation, probably left anterior fascicular block and right bundle branch block. LAB DATA: Lab data includes hematocrit 37.0 with white blood cell count 10.66. D-dimer 0.25, INR 1.18. BUN 26, creatinine 0.9. CPK 76, troponin-T 0.037. cc: Lon Kulkarni MD
[2016-05-31] MEDS: CARDIZEM PO SCH ×3 (11:20→22:13)
[2016-05-31 12:37] LABS: URINE CULTURE PL NEEDED? NO
[2016-05-31 12:57] LABS: BILIRUBIN URINE NEGATIVE (NEGATIVE); BLOOD URINE NEGATIVE (NEGATIVE); CLARITY CLEAR (CLEAR); COLOR YELLOW; LEUKOCYTES URINE TRACE (NEGATIVE); NITRITE URINE NEGATIVE (NEGATIVE); UROBILINOGEN URINE NORMAL
[2016-05-31 13:09] LABS: URINE EPITHELIAL CELLS <10 /HPF (<10); URINE SOURCE CATH; URINE WBC <10 /HPF (<10)
[2016-05-31] MEDS: PERCOCET-5 PO PRN ×2 (15:57→21:40)
[2016-05-31] MEDS ORDERED: ZOFRAN ODT PO PRN (18:09)
[2016-05-31] MEDS ORDERED: NITROGLYCERIN SL PRN (18:09)
[2016-05-31] MEDS ORDERED: PERICOLACE PO PRN (18:09)
[2016-05-31] MEDS ORDERED: HYDROXYZINE PO PRN (18:09)
[2016-05-31] MEDS ORDERED: REGLAN PO PRN (18:09)
[2016-05-31] MEDS ORDERED: VENTOLIN HFA INH PRN (18:12)
--- NOTE | 2016-05-31 18:39 | HISTORY AND PHYSICAL ---
CHIEF COMPLAINT: Fast heart rate. HISTORY OF PRESENT ILLNESS: This is a 70-year-old female with a history of paroxysmal atrial tachycardias including atrial fib and flutter, COPD, diabetes mellitus who presented to the emergency room complaining of fast heart rate, lightheadedness and she was found to be in atrial VF with RVR. She was given adenosine x2 doses with Cardizem 10 mg IV twice and then started on a Cardizem drip. She denied any chest pain, syncopal episodes, or orthopnea. No PND. PAST MEDICAL HISTORY: 1. Recurrent atrial arrhythmias including atrial fib and atrial flutter being treated with rate control and anticoagulation. 2. Severe COPD requiring home oxygen, with continued tobacco abuse. 3. Diabetes mellitus. 4. Gastroesophageal reflux disease. 5. Obstructive sleep apnea. 6. Coronary artery disease. 7. Previous CVA. 8. Recent diabetic foot ulcer. PAST SURGICAL HISTORY: Coronary bypass grafting, cholecystectomy, hysterectomy, breast reduction, left heel incision and drainage. ALLERGIES: Penicillin, codeine, Flagyl, sulfa. HOME MEDICATIONS: A list will be obtained. SOCIAL HISTORY: She smokes 2 packs of cigarettes a day. She lives with her son. She denies alcohol or illicit drug use. REVIEW OF SYSTEMS: A 14 point review of systems is discussed with the patient with pertinent positives stated in the HPI. She denied chest pain, dizziness, PND, orthopnea, recent weight loss or weight gain, night sweats, persistent cough, nausea, vomiting, diarrhea, constipation, black or bloody vomitus, black or bloody stools, hematuria, dysuria, frequency, urgency. PHYSICAL EXAMINATION: GENERAL: This is a 70-year-old female who is lying in the bed, in no distress. VITAL SIGNS: Blood pressure is 106/57 with a heart rate of 108. It is irregular. Respirations are 20 to 22 with O2 sats ranging 98-99% on 3 L nasal cannula. HEENT: Head is normocephalic, atraumatic. Pupils equal, round, react to light. EOMs are intact. Sclerae anicteric. Mucous membranes are moist. NECK: Supple with trachea midline. No JVD noted. CARDIOVASCULAR: Irregularly irregular rate and rhythm. S1 and S2 are appreciated. PULMONARY: Breath sounds are diminished with prolonged expiration. She does have a few expiratory wheezes scattered throughout with no increased work of breathing. GASTROINTESTINAL: Abdomen is soft, nontender, nondistended with bowel sounds in all 4 quadrants. EXTREMITIES: No clubbing, cyanosis, or edema. Calves nontender. Pulses palpable. MUSCULOSKELETAL: Good range of motion of joints. NEUROLOGIC: She is alert and oriented x3. DIAGNOSTICS: WBC is 10.6 with a hemoglobin of 10.9, hematocrit 37 and platelets of 230,000. Sodium is 132, potassium 4.4, BUN 26, creatinine 0.9, with a glucose of 363. Troponin is 0.037. Chest x-ray revealed sternal wires present. Heart remains enlarged. No pleural effusions. No consolidation. ASSESSMENT AND PLAN: 1. Recurrent atrial fibrillation with RVR in a patient with chronic atrial fibrillation. Patient was placed on a Cardizem drip in the emergency room. She has been evaluated by Cardiology who has recommended to start regular release Cardizem, decrease and wean off Cardizem drip. 2. Chronic anticoagulation with Eliquis. We will continue this. 3. COPD oxygen dependent. We will continue her medications as well as supplemental oxygen. 4. Tobacco abuse. I have discussed with the patient the perils of smoking, given alternatives for smoking cessation and the patient states she does not want to stop smoking at this time. 5. Arteriosclerotic coronary disease. We will continue her home medications. 6. Hypertension. We will clean trend vital signs and continue her medications. 7. Diabetes mellitus. We will identify and continue her home medications. We will follow her blood sugars. Further treatments pending hospital course. Dictated by KEYON Márquez for Aneesh White MD cc: KEYON Márquez MD
[2016-05-31] MEDS: GLUCOPHAGE PO SCH (18:43)
[2016-05-31] MEDS: ADVAIR 250/50 DISKUS INH SCH (19:15)
[2016-05-31] MEDS: XOPENEX NEB INH PRN (19:15)
[2016-05-31] MEDS: XANAX PO PRN (19:34)
[2016-05-31] MEDS: CARAFATE PO SCH (21:55)
[2016-05-31] MEDS: FISH OIL CONCENTRATE PO SCH (21:55)
[2016-05-31] MEDS: ELIQUIS PO SCH (21:55)
[2016-05-31] MEDS: LASIX PO SCH (21:56)
[2016-05-31] MEDS: LANTUS INSULIN (PARKWAY) SUBQ SCH (21:56)
[2016-05-31] MEDS: LYRICA PO SCH (21:56)
[2016-05-31] MEDS: LIPITOR PO SCH (21:56)
[2016-05-31] MEDS: RANEXA PO SCH (21:57)
[2016-05-31] MEDS: MIRALAX PO SCH (21:58)
[2016-06-01] MEDS: CARDIZEM 100 MG/NS 100 MG/100 ML IVPB IV SCH (04:00)
[2016-06-01] MEDS: PERCOCET-5 PO PRN ×3 (05:50→20:27)
[2016-06-01] MEDS: CARDIZEM PO SCH ×4 (05:59→21:02)
[2016-06-01] MEDS: PRILOSEC PO SCH (06:15)
[2016-06-01 06:39] LABS: HEMATOCRIT 36.9 % (37.0-47.0); HEMOGLOBIN 10.6 g/dL (12.0-16.0); MCH 21.9 PG (27-31); MCHC 28.7 g/dL (33-37); MCV 76.4 FL (81-99); MPV 10.8 FL (7.4-10.4); RBC 4.83 XMIL (4.2-5.4)
[2016-06-01] MEDS ORDERED: SYNTHROID PO SCH ×2 (07:00→07:30)
[2016-06-01 07:27] LABS: AGAP 14; ALBUMIN 2.7 g/dL (3.5-5.0); ALKALINE PHOSPHATASE 90 U/L (32-104); BUN 16 mg/dL (8-22); CALCIUM 8.3 mg/dL (8.8-10.2); CHLORIDE 101 mmol/L (98-107); COSMO 279; GOT 29 U/L (10-30); GPT 30 U/L (10-36); MAGNESIUM 2.2 mg/dL (1.5-2.7); POTASSIUM 3.4 mmol/L (3.5-5.1); SODIUM 140 mmol/L (136-145); TCO2 26 mmol/L (25-35); TOTAL PROTEIN 5.7 g/dL (6.3-8.3)
[2016-06-01] MEDS: ADVAIR 250/50 DISKUS INH SCH ×2 (07:34→23:04)
[2016-06-01] MEDS: XOPENEX NEB INH PRN ×4 (07:35→23:06)
[2016-06-01] MEDS: GLUCOPHAGE PO SCH ×3 (07:40→16:12)
[2016-06-01] MEDS: SYNTHROID PO SCH (07:53)
[2016-06-01] MEDS: XANAX PO PRN ×2 (07:53→21:47)
[2016-06-01] MEDS: ELIQUIS PO SCH ×2 (08:35→20:25)
[2016-06-01] MEDS: PRINIVIL PO SCH (08:35)
[2016-06-01] MEDS: KLOR-CON PO SCH (08:35)
[2016-06-01] MEDS: MEGACE PO SCH (08:36)
[2016-06-01] MEDS: FISH OIL CONCENTRATE PO SCH ×2 (08:36→20:26)
[2016-06-01] MEDS: ASPIRIN PO SCH (08:36)
[2016-06-01] MEDS: LASIX PO SCH ×2 (08:36→20:26)
[2016-06-01] MEDS: CARAFATE PO SCH ×4 (08:36→20:25)
[2016-06-01] MEDS: RANEXA PO SCH ×2 (08:36→20:27)
[2016-06-01] MEDS ORDERED: PREDNISONE PO SCH (09:00)
[2016-06-01] MEDS ORDERED: SYNTHROID PO ONE (09:15)
--- NOTE | 2016-06-01 11:50 | EKG Report ---
Test Performed on : 06/01/2016 11:44:38 AM Test Reason : r/o a.fib vs SR - conversion possible Blood Pressure : / mmHG Vent. Rate : 074 BPM Atrial Rate : 074 BPM P-R Int : 188 ms QRS Dur : 126 ms QT Int : 448 ms P-R-T Axes : 067 -71 -41 degrees QTc Int : 497 ms Normal sinus rhythm. Left axis deviation Right bundle branch block Minimal voltage criteria for LVH, may be normal variant T wave abnormality, consider lateral ischemia Abnormal ECG When compared with ECG of 31-MAY-2016 09:17, (Unconfirmed) Vent. rate has decreased BY 40 BPM Confirmed by Lul Gillespie MD ([id number]) on 06/04/2016 9:51:08 PM
--- NOTE | 2016-06-01 13:28 | PROGRESS NOTE ---
DATE: 06/01/2016 SUBJECTIVE: The patient notes she is feeling much better this morning. She is having much less cough, congestion. Much less shortness of breath. Much less palpitations. OBJECTIVE: Vital signs: Temperature 97, pulse 72, respiratory 20, BP 100/51, saturation 97% on 3 L. General: Patient is an awake, alert female who appears her stated age. She is currently in no respiratory distress. Pleasant to talk with. Speech is regular. Memory is intact. Neck: Supple. CV: Appears regular rate. Certainly rate controlled. Chest: Relatively clear. Much less wheezing from yesterday's exam. Good air movement bilaterally. Abdomen: Soft. Extremities: Moves all extremities. Neurologic: No changes. LABS: CBC unchanged. Hemoglobin and hematocrit 10 and 36 with some iron deficiency. Potassium 3.4, glucose 401, albumin 2.7. ASSESSMENT: 1. Moderate protein calorie malnutrition. 2. Diabetes with hyperglycemia, likely secondary to the steroids that she has been given. 3. Iron deficiency anemia of chronic disease. 4. Chronic obstructive pulmonary disease with moderate exacerbation, much improved. 5. Atrial fibrillation with rapid ventricular response. Currently appears sinus. 6. Chronic anticoagulation with Eliquis. 7. Chronic tobacco abuse. Again, discussed with the patient the perils of smoking. PLAN: We will stop the patient's Cardizem drip. Convert her over to p.o. Cardizem. We will change to 60 q.8. Will continue sliding scale insulin. Continue her Synthroid. We will decrease her prednisone to 20 mg. further orders as needed. cc: Aneesh White MD
[2016-06-01] MEDS ORDERED: HUMALOG (PARKWAY) SUBQ SCH (16:00)
[2016-06-01] MEDS: HUMALOG DOSE (PARKWAY) SUBQ SCH ×2 (16:00→20:28)
[2016-06-01] MEDS ORDERED: HUMALOG DOSE (PARKWAY) INJ ONE (16:25)
[2016-06-01 17:34] LABS: AGAP 13; BUN 19 mg/dL (8-22); CALCIUM 7.7 mg/dL (8.8-10.2); CHLORIDE 95 mmol/L (98-107); COSMO 289; POTASSIUM 4.1 mmol/L (3.5-5.1); SODIUM 132 mmol/L (136-145); TCO2 24 mmol/L (25-35)
[2016-06-01 17:39] LABS: BASO% 0.1 % (0.0-0.8); HEMATOCRIT 36.2 % (37.0-47.0); HEMOGLOBIN 10.4 g/dL (12.0-16.0); IMM GRAN# 0.03 X1000 (0.0-0.04); IMM GRAN% 0.4 % (0.0-0.5); LYMPH# 0.84 X1000 (1.2-3.4); LYMPH% 10.1 % (20.5-51.1); MANUAL DIFF NEEDED? YES; MCH 22.3 PG (27-31); MCHC 28.7 g/dL (33-37); MCV 77.5 FL (81-99); MONO# 0.14 X1000 (0.11-0.59); MONO% 1.7 % (1.7-9.3); MPV 10.3 FL (7.4-10.4); NEUT% 87.7 % (42.2-75.2); PLT 209 X1000 (130-400); RBC 4.67 XMIL (4.2-5.4)
[2016-06-01 17:42] LABS: LYMPHS 15 % (21-51); MONO 1 % (1-9)
[2016-06-01] MEDS ORDERED: HUMULIN R IV ONE (18:06)
[2016-06-01] MEDS ORDERED: ZOFRAN IV PRN ×2 (18:06→22:43)
[2016-06-01] MEDS ORDERED: D50W SYRINGE IV PRN ×2 (18:06→22:43)
[2016-06-01] MEDS ORDERED: HUMULIN R 100 UNIT in NS 99 ML IV SCH ×2 (18:06→22:43)
[2016-06-01] MEDS ORDERED: SODIUM PHOSPHATE 30 MMOL in D5W 250 ML IV PRN ×2 (18:06→22:43)
[2016-06-01] MEDS ORDERED: NS 1,000 ML IV SCH (18:06)
[2016-06-01] MEDS ORDERED: MAGNESIUM SULFATE 2 GM/S.W.I. 2 GM/50 ML IVPB IV PRN ×2 (18:06→22:43)
[2016-06-01] MEDS: LIPITOR PO SCH (20:26)
[2016-06-01] MEDS: LYRICA PO SCH (20:26)
[2016-06-01] MEDS: LANTUS INSULIN (PARKWAY) SUBQ SCH (20:28)
[2016-06-01] MEDS: MIRALAX PO SCH (20:29)
[2016-06-01] MEDS: DETROL PO SCH (20:41)
[2016-06-01] MEDS ORDERED: BLISTEX MEDICATED BERRY LIP BALM TOP PRN (20:52)
--- NOTE | 2016-06-01 21:01 | PROGRESS NOTE ---
DATE: 06/01/2016 SUBJECTIVE: Patient reports feeling much better today. She has converted back to sinus rhythm. She denies any chest discomfort or dyspnea on oxygen per nasal cannula. She is off intravenous Cardizem. OBJECTIVE: Vital Signs: Blood pressure 97/45, heart rate 88 and regular with ECG monitor showing sinus rhythm. There is no significant JV distention. Chest: Auscultation reveals scattered rhonchi. Cardiac Exam: Reveals a regular rate and rhythm without appreciable murmur or gallop. There is no evidence of peripheral edema. IMPRESSION: 1. Recent atrial flutter with rapid ventricular rate now resolved. 2. Severe chronic obstructive pulmonary disease, oxygen dependent. 3. Chronic ongoing heavy cigarette use. 4. Arthrosclerotic coronary disease. 5. Hypertension. 6. Diabetes mellitus requiring insulin for control. RECOMMENDATIONS: 1. Agree with transition to oral diltiazem. She was previously on Cardizem CD 120 mg daily which appeared to be inadequate for rate control in the setting of atrial flutter. The patient currently on diltiazem 60 mg p.o. t.i.d. which is reasonable increase. 2. Continue long-term anticoagulation with Eliquis. 3. Smoking cessation strongly advised. 4. Reasonable for patient to transfer out of intensive care unit to telemetry bed. cc: Lon Kulkarni MD
[2016-06-01 21:59] LABS: AGAP 10; BUN 17 mg/dL (8-22); CALCIUM 7.9 mg/dL (8.8-10.2); CHLORIDE 98 mmol/L (98-107); COSMO 281; POTASSIUM 3.6 mmol/L (3.5-5.1); SODIUM 135 mmol/L (136-145); TCO2 27 mmol/L (25-35)
[2016-06-01] MEDS ORDERED: KLOR-CON PO PRN ×2 (22:43)
[2016-06-02 01:14] LABS: AGAP 11; BUN 16 mg/dL (8-22); CALCIUM 7.9 mg/dL (8.8-10.2); CHLORIDE 98 mmol/L (98-107); COSMO 279; MAGNESIUM 2.1 mg/dL (1.5-2.7); POTASSIUM 3.5 mmol/L (3.5-5.1); SODIUM 136 mmol/L (136-145); TCO2 27 mmol/L (25-35)
[2016-06-02] MEDS: PERCOCET-5 PO PRN ×3 (01:36→20:20)
[2016-06-02] MEDS ORDERED: NS 1,000 ML IV SCH (02:00)
[2016-06-02] MEDS: XOPENEX NEB INH PRN ×6 (03:48→22:59)
[2016-06-02 06:17] LABS: AGAP 11; BUN 16 mg/dL (8-22); CALCIUM 8.1 mg/dL (8.8-10.2); CHLORIDE 99 mmol/L (98-107); COSMO 276; MAGNESIUM 2.1 mg/dL (1.5-2.7); POTASSIUM 3.5 mmol/L (3.5-5.1); SODIUM 136 mmol/L (136-145); TCO2 27 mmol/L (25-35)
[2016-06-02] MEDS: PRILOSEC PO SCH (06:21)
[2016-06-02] MEDS: CARDIZEM PO SCH (06:21)
[2016-06-02] MEDS: SYNTHROID PO SCH ×2 (06:23)
[2016-06-02] MEDS: HUMALOG DOSE (PARKWAY) SUBQ SCH ×4 (06:39→20:20)
[2016-06-02] MEDS ORDERED: SYNTHROID PO SCH (07:00)
[2016-06-02] MEDS: GLUCOPHAGE PO SCH ×2 (07:35→16:55)
[2016-06-02] MEDS: FISH OIL CONCENTRATE PO SCH ×2 (08:12→20:07)
[2016-06-02] MEDS: PRINIVIL PO SCH (08:12)
[2016-06-02] MEDS: RANEXA PO SCH ×2 (08:12→20:07)
[2016-06-02] MEDS: ELIQUIS PO SCH ×2 (08:13→20:07)
[2016-06-02] MEDS: ASPIRIN PO SCH (08:13)
[2016-06-02] MEDS: LASIX PO SCH ×2 (08:13→20:07)
[2016-06-02] MEDS: PREDNISONE PO SCH (08:13)
[2016-06-02] MEDS: KLOR-CON PO SCH (08:13)
[2016-06-02] MEDS: CARDIZEM CD PO SCH (08:13)
[2016-06-02] MEDS: MEGACE PO SCH (08:13)
[2016-06-02] MEDS: CARAFATE PO SCH ×4 (08:13→20:07)
[2016-06-02] MEDS: ADVAIR 250/50 DISKUS INH SCH ×2 (08:24→20:25)
--- NOTE | 2016-06-02 08:47 | EKG Report ---
Test Performed on : 05/31/2016 01:36:32 AM Test Reason : ROUTINE Blood Pressure : / mmHG Vent. Rate : 125 BPM Atrial Rate : 250 BPM P-R Int : 000 ms QRS Dur : 132 ms QT Int : 312 ms P-R-T Axes : 249 -69 010 degrees QTc Int : 450 ms Atrial flutter. with 2:1 AV conduction. Left axis deviation Right bundle branch block Moderate voltage criteria for LVH, may be normal variant Abnormal ECG When compared with ECG of 31-MAY-2016 01:26, (Unconfirmed) Significant changes have occurred Unconfirmed Result
--- NOTE | 2016-06-02 08:47 | EKG Report ---
Test Performed on : 05/31/2016 01:26:31 AM Test Reason : ROUTINE Blood Pressure : / mmHG Vent. Rate : 214 BPM Atrial Rate : 000 BPM P-R Int : 000 ms QRS Dur : 224 ms QT Int : 282 ms P-R-T Axes : 000 269 103 degrees QTc Int : 532 ms Atrial fibrillation. with rapid ventricular response. Right ventricular hypertrophy Left ventricular hypertrophy with QRS widening Inferior infarct , age undetermined Anterolateral infarct , age undetermined Abnormal ECG No previous ECGs available Unconfirmed Result
--- NOTE | 2016-06-02 08:48 | PROGRESS NOTE ---
DATE: 06/02/2016 SUBJECTIVE: The patient notes that she feels much better this morning. She is actually asking to go home. She denies any current chest pains or palpitations. She denies any fevers or chills. PHYSICAL EXAMINATION: Vital Signs: Temperature 97 degrees. Pulse 120, currently her pulse is 90, still irregular. Respiratory rate 20, blood pressure 116/60, saturation 92% on 3 liters. General: The patient is awake, alert. She is currently in no respiratory distress. HEENT: Normocephalic, atraumatic. Neck: Supple. Cardiovascular: Irregular rate, better controlled than yesterday; irregular rhythm. Chest: Clear. Abdomen: Soft, nondistended. No masses. Extremities: Moves all extremities. LABORATORY DATA: Labs were reviewed. ASSESSMENT: 1. Atrial fibrillation with rapid ventricular response. We will attempt to increase her Cardizem CD to 180 today and stop her short-acting. We will continue Eliquis, as she is still in chronic atrial fibrillation. 2. Diabetes. Blood sugar was markedly elevated yesterday, up into the 400s and 500s. She was placed on an insulin drip overnight. Her blood sugar is much better this morning. Unfortunately, Ms. Marlow is quite ill with us, as she states that we are being mean to her because we would not let her eat crackers. She states that she will never come back to this hospital because of that. I discussed with her very calmly that although she may continue to believe that we are doing this simply to be mean, we had no desire for her to from hyperglycemia yesterday and that was the reason that she needs to stop eating sugary type foods at home. After placing her n.p.o. and placing her on an insulin drip, her blood sugars quickly dropped back into the 100s without any difficulty. This morning blood sugar is also to 140. I discussed with her again the perils of not complying with a diabetic diet. I tried to discuss her that these "sick-like" feelings that she is having early a.m. may be secondary to her blood sugar being low. I asked her if she checked her blood sugar at home. She said yes; however, she refused to tell me what her blood sugars were, stating that simply she checked them and that should be enough. 3. Chronic obstructive pulmonary disease, improved. 4. Chronic oxygen dependence. 5. Chronic tobacco abuse. Again, discussed with the patient the perils of smoking. 6. Hypertension. PLAN: We will move the patient to the floor and hopefully home either later this afternoon or tomorrow, it depends on her symptoms. cc: Aneesh White MD
[2016-06-02] MEDS ORDERED: PREDNISONE PO SCH (09:00)
[2016-06-02] MEDS ORDERED: SPIRIVA INH SCH (11:33)
[2016-06-02] MEDS ORDERED: FORADIL INH SCH (19:30)
[2016-06-02] MEDS: LIPITOR PO SCH (20:07)
[2016-06-02] MEDS: LYRICA PO SCH (20:07)
[2016-06-02] MEDS: DETROL PO SCH (20:07)
[2016-06-02] MEDS ORDERED: LANTUS INSULIN (PARKWAY) SUBQ SCH (21:00)
[2016-06-03] MEDS: XOPENEX NEB INH PRN (03:37)
[2016-06-03] MEDS: HUMALOG DOSE (PARKWAY) SUBQ SCH ×2 (06:12→10:24)
[2016-06-03] MEDS: PRILOSEC PO SCH (06:12)
[2016-06-03] MEDS: SYNTHROID PO SCH ×2 (06:12)
[2016-06-03] MEDS ORDERED: BROVANA NEB INH SCH ×2 (07:30→19:30)
[2016-06-03] MEDS: CARAFATE PO SCH ×2 (08:39→10:24)
[2016-06-03] MEDS: ASPIRIN PO SCH (08:39)
[2016-06-03] MEDS: FISH OIL CONCENTRATE PO SCH (08:39)
[2016-06-03] MEDS: GLUCOPHAGE PO SCH (08:40)
[2016-06-03] MEDS: RANEXA PO SCH (08:40)
[2016-06-03] MEDS: MEGACE PO SCH (08:40)
[2016-06-03] MEDS: PRINIVIL PO SCH (08:41)
[2016-06-03] MEDS: PREDNISONE PO SCH (08:41)
[2016-06-03] MEDS: ELIQUIS PO SCH (08:41)
[2016-06-03] MEDS: LASIX PO SCH (08:41)
[2016-06-03] MEDS: CARDIZEM CD PO SCH (08:45)
[2016-06-03] MEDS: PERCOCET-5 PO PRN (08:51)
[2016-06-03 11:07] VITALS: BP 121/77
--- NOTE | 2016-06-03 23:39 | DISCHARGE SUMMARY ---
ADMISSION DATE: 05/31/2016 DISCHARGE DATE: 06/03/2016 DISCHARGE DIAGNOSES: 1. Atrial fibrillation, currently rate controlled, with rapid rate on admission. 2. Chronic anticoagulation, on Eliquis. 3. Chronic hypoxic respiratory failure, on 3 L at home. 4. Chronic tobacco abuse. Again discussed with patient the perils of smoking. 5. Chronic obstructive pulmonary disease, with mild exacerbation, resolved. 6. Known atherosclerotic coronary artery disease. 7. Hypertension. 8. Diabetes. Did have an elevated blood sugar in the hospital at 500, which was felt to be secondary to her diet. After having stopped her from eating lots of peanut butter crackers, her blood sugars have been in the upper 100s to mid 100s throughout the rest of the hospital stay. CONSULTATIONS: Cardiology. PROCEDURES: None. BRIEF HOSPITAL COURSE: The patient is a 70-year-old female who was admitted, as noted on the HPI, with atrial fibrillation with rapid rate. She was placed on a Cardizem drip, and then converted back to her p.o. Cardizem. However, her p.o. Cardizem was increased to 180, instead of her home 120 dose. Lasix, as well as the rest of her home medications, were continued without any change. Thankfully, she has improve. She is able to ambulate in the mc without any difficulty. Therefore, she will be discharged home. cc: Aneesh White MD
--- NOTE | 2016-06-06 05:27 | PROVIDER DOCUMENTATION ---
This chart was entered by Albin Vaca Scribe, acting as scribe for Jose Brar MD. HPI-Cardiac General - General Chief Complaint: Palpitations Stated Complaint: DYSPNEA, SVT EN ROUTE Time Seen by Provider: 05/31/16 01:44 Source: patient, EMS Allergies/Adverse Reactions: Patient Allergies Allergy/AdvReac Type Severity Reaction Status Date / Time Penicillins Allergy Mild RASH Verified 06/04/16 14:37 codeine [Codeine] Allergy Unknown Verified 06/04/16 14:37 metronidazole [From Flagyl] Allergy Unknown Verified 06/04/16 14:37 Metronidazole HCl * Allergy Unknown Verified 06/04/16 14:37 [From Flagyl] Sulfa (Sulfonamide Allergy Unknown Verified 06/04/16 14:37 Antibiotics) [Sulfa(Sulfonamide Antibiotics)] benzathine Allergy Unknown Uncoded 06/04/16 14:37 Home Medications: Home Medication List Medication Instructions Recorded Confirmed Last Taken Type Albuterol Sulfate [Proair Hfa] 2 puff IH PRN PRN 01/14/16 06/04/16 1 Day Ago History Dicyclomine [Bentyl] 10 mg PO BID 01/14/16 06/04/16 06/04/16 08:00 History 10 mg Furosemide [Lasix] 60 mg PO BID 01/14/16 06/04/16 06/04/16 08:00 History 60 mg Hydroxyzine HCl 25 mg PO Q6H PRN PRN 01/14/16 06/04/16 1 Day Ago History Levothyroxine [Synthroid] 175 microgm PO DAILY 01/14/16 06/04/16 06/04/16 07:00 History 175 mcg Metformin HCl 1,000 mg PO BID 01/14/16 06/04/16 06/04/16 08:00 History 1000 mg Nitroglycerin [Nitrostat] 0.4 mg SL PRN PRN 01/14/16 06/04/16 04/18/16 History Omeprazole 20 mg PO DAILY 01/14/16 06/04/16 06/04/16 08:00 History 20 mg Ondansetron [Zofran] 4 mg PO Q8H PRN PRN 01/14/16 06/04/16 1 Day Ago History Polyethylene Glycol 3350 17 gm PO QHS 01/14/16 06/04/16 06/03/16 20:00 History 17 gm Ranolazine [Ranexa] 1,000 mg PO BID 01/14/16 06/04/16 06/04/16 08:00 History 1000 mg Sennosides/Docusate Sodium [Senna 4 tab PO BID PRN 01/14/16 06/04/16 1 Day Ago History Plus Tablet] Atorvastatin Calcium [Lipitor] 80 mg PO QHS 02/07/16 06/04/16 06/03/16 20:00 History 80 mg Sucralfate [Carafate] 1 gm PO 4XDAY 02/07/16 06/04/16 06/04/16 08:00 History 1 gm Aspirin 81 mg PO DAILY #0 chewtab 02/08/16 06/04/16 06/04/16 08:00 Rx 81 mg Alprazolam 0.5 mg PO BID PRN 03/18/16 06/04/16 06/04/16 08:00 History 0.5 mg Insulin Glargine [Lantus] 30 unit SUBQ QHS 03/18/16 06/04/16 06/03/16 20:00 History 30 units Metoclopramide HCl [Reglan] 5 mg PO TID PRN 03/18/16 06/04/16 04/18/16 History Potassium Chloride 10 meq PO DAILY 03/18/16 06/04/16 06/04/16 08:00 History 10 meq Tolterodine [Detrol] 4 mg PO HS 03/18/16 06/04/16 06/03/16 20:00 History 4 mg Benzonatate 200 mg PO Q4H PRN 04/19/16 06/04/16 1 Day Ago History LISINOpril [Prinivil] 5 mg PO DAILY 04/19/16 06/04/16 06/04/16 08:00 History 5 mg Levalbuterol Neb [Xopenex Neb] 1.25 mg INH Q4H PRN PRN 04/19/16 06/04/16 1 Day Ago History Megestrol Acetate [Megace] 40 mg PO DAILY 04/19/16 06/04/16 06/04/16 08:00 History 40 mg Acetaminophen [Tylenol] 500 - 1,000 mg PO Q6H PRN PRN 05/31/16 06/04/16 Unknown History Apixaban [Eliquis] 5 mg PO BID 05/31/16 06/04/16 06/04/16 08:00 History 5 mg Collagenase Clostridium Hist. 250 units TP DAILY 05/31/16 06/04/16 06/04/16 08: 00 History [Santyl] 1 application Fluticasone/Salmeterol [Advair 1 each IH BID 05/31/16 06/04/16 Unknown History 250-50 Diskus] Nystatin Susp [Mycostatin Susp] 5 ml PO 4XDAY 05/31/16 06/04/16 05/30/16 History [place]-3 Fatty Acids/Fish Oil [Fish 1 each PO BID 05/31/16 06/04/16 06/04/16 08: 00 History Oil 1,000 mg Capsule] 1 tab Ondansetron [Zofran Odt] 4 mg PO Q8H PRN 05/31/16 06/04/16 Unknown History Oxycodone HCl/Acetaminophen 1 each PO Q6-8H PRN PRN 05/31/16 06/04/16 1 Day Ago History [Percocet 5-325 mg Tablet] Prednisone 40 mg PO DAILY 05/31/16 06/04/16 06/04/16 08:00 History 20 mg Pregabalin [Lyrica] 75 mg PO QHS 05/31/16 06/04/16 06/03/16 20:00 History 75 mg Tiotropium [place] Inhaler 18 mcg IH DAILY 05/31/16 06/04/16 06/04/16 08:00 History [Spiriva] 18 mcg Diltiazem C.d. [Cardizem Cd] 180 mg PO DAILY #90 capsule 06/03/16 06/04/16 Unknown Rx Diltiazem L.a. [Cardizem LA] 180 mg PO DAILY #90 tablet 06/03/16 06/04/16 Unknown Rx - History of Present Illness-Cardiac Nature of Presenting Problem: 70 YOWF PRESENTS TO ED VIA [facility], WITH C/O EMS STATES CALL CAME IN DIFFICULTY BREATHING. EMS STATES PT WAS IN WHAT THEY THOUGHT WAS SVT WITH HR OF 230 ON THE MONITOR. PT PRESENTS WITH SOB AND WEAKNESS FROM TACHYCARDIA. 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 PT STATES PAIN BETWEEN SHOULDER BLADES 8/ 10. PT STATES SHE WAS WATCHING TV WHEN SX CAME ON SUDDENLY. Location: reports: back (SHOULDER BLADES) Quality of Pain: reports: aching Severity in ED: moderate Onset/Duration: 1 hour ago Timing: improving Context/Activities at Onset: reports: light activity Modifying Factors: improves with: nothing Palpitation Quality: irregular History of arrythmia: reports: A-Fib Aspirin Treatment Today: reports: 325 mg x 1, provided by ED Associated Symptoms: reports: back pain, shortness of breath Similar Symptoms Previously?: No Recently Seen Here or By Another Healthcare Provider: No Review of Systems - Adult - REVIEW OF SYSTEMS - ADULT Constitutional: denies: chills, fever Eyes: reports: no symptoms reported Ears, Nose, Mouth & Throat: reports: no symptoms reported Cardiovascular: reports: irregular heart rate (A-FIB), palpitations Respiratory: reports: cough, shortness of breath Gastrointestinal: denies: abdominal pain, diarrhea, nausea, vomiting Genitourinary: reports: no symptoms reported Musculoskeletal: reports: back pain (BETWEEN SHOULDER BLADES). denies: neck pain Integumentary: reports: no symptoms reported Neurological: denies: dizziness/vertigo, headache/migraines, syncope Psychiatric: reports: no symptoms reported Endocrine: reports: no symptoms reported Hematologic/Lymphatic: reports: no symptoms reported Allergic/Immunologic: reports: no symptoms reported All Other Systems: Reviewed and Negative Past History - Adult - PAST MEDICAL HISTORY-ADULT Review of Records: reports: Nursing Assessment Review, Medications Reviewed Cardiovascular: reports: A-Fib, CAD, CHF, HTN, [place] Respiratory: reports: asthma, COPD (end stage), other (O2 dependent) Musculoskeletal: reports: intervertebral disc disease, osteoporosis Neurological: reports: CVA Psychiatric: reports: anxiety Endocrine/Immune: reports: Diabetes, thyroid disorder Additional History: 3L of home O2 - PRIOR SURGERIES/PROCEDURES Surgical/Procedure History: reports: CABG, cholecystectomy, hysterectomy, joint replacement, breast - PRIOR HOSPITALIZATIONS Prior Hospitalizations: reports: psychiatric or rehab (rehab 2 mos ago) - IMMUNIZATION STATUS Childhood Immunizations: See Nurse Assessment Flu Vaccine: See Nurse Assessment - SOCIAL HISTORY Smoking: cigarettes, greater than 1 pack/day Provider spent 3-5 mins advising pt. on dangers of tobacco.: Discussed manners to quit use, and f/u contacts for add'l counseling. Substance Use: denies Alcohol Use Frequency: never Living Situation: family Physical Exam-General - CONSTITUTIONAL General Appearance: alert, moderate distress - EYES Eyes: PERRL/EOMI, pink conjunctivae - HEAD, EARS, NOSE, MOUTH & THROAT HENMT: normocephalic/atraumatic, moist mucous membranes - NECK Neck: non-tender, full range of motion, supple - RESPIRATORY Respiratory: chest non-tender, lungs clear, normal breath sounds - CARDIOVASCULAR Cardiovascular: normal peripheral pulses, tachycardia - GASTROINTESTINAL (ABDOMEN) Abdominal Exam: normal bowel sounds, non tender, soft - LYMPHATIC Lymphatic: no adenopathy - MUSCULOSKELETAL Back Exam: normal inspection, no CVA tenderness, no vertebral tenderness Extremity: normal range of motion, non-tender - SKIN Integumentary: warm/dry, pallor - NEUROLOGIC Neurologic: grossly normal - PSYCHIATRIC Psych/Mental Status: oriented x 3 Progress - PLAN OF CARE/RESULTS Progress/Plan/Lab Results: Orders Category Date Time Status Admit - [facility] Routine AdmDCTranf 05/31/16 03:39 Ordered Activity - Bed Rest with BRP ORDERED Care 05/31/16 03:39 Completed Call Admitting on Arrival AT ADMISSION Care 05/31/16 03:41 Completed Cardiac Monitoring DIRECTED Care 05/31/16 01:45 Completed Oxygen Therapy- ED Nursing DIRECTED Care 05/31/16 01:45 Completed Saline Loc DIRECTED Care 05/31/16 03:39 Active Saline Loc NOW Care 05/31/16 01:45 Completed Vital Signs Order ARRIVAL TO ROOM Care 05/31/16 03:39 Completed CHEST-PORTABLE [RAD] Stat Exams 05/31/16 01:48 Completed CBC WITH ELECTRONIC DIFF [HEME] Stat Lab 05/31/16 02:00 Completed CK PROFILE [SP CHEM] Stat Lab 05/31/16 02:00 Completed COMPREHENSIVE METABOLIC PANEL [CHEM] Stat Lab 05/31/16 02:00 Completed D-DIMER PL [COAG] Stat Lab 05/31/16 02:00 Completed MAGNESIUM [CHEM] Stat Lab 05/31/16 02:00 Completed PRO B-NATRIURETIC PEPTIDE Stat Lab 05/31/16 02:00 Completed [address]IME WITH INR PL [COAG] Stat Lab 05/31/16 02:[address] [COAG] Stat Lab 05/31/16 02:00 Completed TROPONIN T Stat Lab 05/31/16 02:00 Completed 0.9% Sodium Chloride Inj [Ns] 500 ml Med 05/31/16 01:38 Discontinued .ROUTE As Directed Adenosine [Adenocard] Med 05/31/16 01:32 Discontinued 12 mg IV NOW ONE Adenosine [Adenocard] Med 05/31/16 01:27 Discontinued 24 mg .ROUTE .STK-MED ONE Adenosine [Adenocard] Med 05/31/16 01:29 Discontinued 6 mg IV NOW ONE Albuterol 2.5MG/Ipratrop 0.5MG [Duoneb (A & A)] Med 05/31/16 01:52 Discontinued 3 ml INH NOW ONE Aspirin Med 05/31/16 01:45 Discontinued 325 mg PO STAT STA Diltiazem 100 mg/Ns [Cardizem 100 mg/Ns] Med 05/31/16 02:47 Discontinued 100 mg in 100 ml .ROUTE As Directed Diltiazem 100 mg/Ns [Cardizem 100 mg/Ns] Med 05/31/16 02:42 Discontinued 100 mg in 100 ml IV As Directed Diltiazem [Cardizem] Med 05/31/16 01:47 Discontinued 10 mg IV NOW ONE Diltiazem [Cardizem] Med 05/31/16 02:42 Discontinued 10 mg IV NOW ONE Diltiazem [Cardizem] Med 05/31/16 01:35 Discontinued 25 mg .ROUTE .STK-MED ONE Diltiazem [Cardizem] Med 05/31/16 01:44 Discontinued 25 mg .ROUTE .STK-MED ONE Furosemide [Lasix] Med 05/31/16 03:25 Discontinued 40 mg IV NOW ONE Insulin Human Regular ([place] [Humulin R ([place])] Med 05/31/16 03:37 Discontinued 1 units .ROUTE .STK-MED ONE Insulin Human Regular [Humulin R] Med 05/31/16 03:00 Discontinued 10 unit SUBQ NOW ONE Morphine Med 05/31/16 01:52 Discontinued 4 mg IV NOW ONE Ondansetron [Zofran] Med 05/31/16 01:52 Discontinued 4 mg IV NOW ONE Aerosol Treatments Routine Oth 05/31/16 01:52 Completed Aerosol Treatments Stat Oth 05/31/16 01:52 Completed Oxygen Device Routine Oth 05/31/16 03:41 Completed Telemetry [OM.EQ] Routine Oth 05/31/16 03:39 Active Transfer/Admit Order [TRANSFER] Routine Transfer 05/31/16 03:41 Completed Result Diagrams: 06/01/16 16:55 06/02/16 05:15 - EKG 1 Time of EKG reading by physician:: 01:27 EKG Read and Signed by:: Jose Brar EKG Interpretation (*Must complete 3 of following elements*): Abnormal Rate: 214 Rhythm: A-FIB WITH RVR QRS: LVH (WITH QRS WIDENING), other (RVH) Comments: INFERIOR INFARCT. ANTEROLATERAL INFARCT 2 Time of EKG reading by physician:: 01:37 EKG Read and Signed by:: Jose Brar EKG Interpretation (*Must complete 3 of following elements*): Abnormal Rate: 125 Rhythm: A-FLUTTER WITH 2:1 AV CONDUCTION Eddy: left QRS: RBB, LVH (MODERATE VOLTAGE CRITERIA FOR LVH, MAY BE NORMAL) Departure - Departure Time of Disposition Decision: 03:26 DIAGNOSIS: Atrial fibrillation with RVR, CHF (congestive heart failure) Disposition: ADMITTED INPATIENT 09 Certified Medical Emergency: Emergent Condition: Serious - Critical Care Note This patient required my direct personal management.: No This chart was documented by the indicated scribe, (Albin Vaca Scribe) and accurately reflects the services I performed and decisions made by me, Jose Brar MD, as attested by the provider's signature.
== END 2016-06-03 11:55 | disposition home health service (06) ==
LOC: P.ED 01:24 → SUATTDRO 04:11 → P.ICU 04:11 → P.MEDSURG 06-02 09:04
PROVIDERS: ATTEND Family Medicine

== ENCOUNTER 2016-06-04 14:29 | Inpatient (IN) ==
[2016-06-04] MEDS ORDERED: DUONEB (A & A) INH ONE (14:59)
[2016-06-04] MEDS ORDERED: SOLU-MEDROL IV ONE (14:59)
--- NOTE | 2016-06-04 15:28 | EKG Report ---
Test Performed on : 06/04/2016 3:11:46 PM Test Reason : CHEST PAIN Blood Pressure : / mmHG Vent. Rate : 087 BPM Atrial Rate : 234 BPM P-R Int : 000 ms QRS Dur : 142 ms QT Int : 400 ms P-R-T Axes : 000 -32 -28 degrees QTc Int : 481 ms Atrial flutter. with variable AV block. Left axis deviation Right bundle branch block Moderate voltage criteria for LVH, may be normal variant Abnormal ECG When compared with ECG of 04-JUN-2016 14:27, (Unconfirmed) Atrial flutter. has replaced Sinus rhythm. Unconfirmed Result
--- NOTE | 2016-06-04 15:30 | Diag Imaging Result Document ---
PROCEDURE NAME: CHEST-PORTABLE - 06/04/2016 PORTABLE CHEST X-RAY: COMPARISON: 05/31/2016. FINDINGS: Stable sternotomy wires. Stable cardiomegaly and pulmonary vascular congestion. Stable linear atelectasis in the lung bases bilaterally. No new infiltrates or obvious edema. IMPRESSION: No change from prior.
--- NOTE | 2016-06-04 15:48 | EKG Report ---
Test Performed on : 06/04/2016 2:27:32 PM Test Reason : SOB Blood Pressure : / mmHG Vent. Rate : 100 BPM Atrial Rate : 100 BPM P-R Int : 128 ms QRS Dur : 152 ms QT Int : 398 ms P-R-T Axes : 096 -73 032 degrees QTc Int : 513 ms Normal sinus rhythm. Right bundle branch block Left anterior fascicular block Bifascicular block Minimal voltage criteria for LVH, may be normal variant Abnormal ECG When compared with ECG of 01-JUN-2016 11:44, (Unconfirmed) QRS duration has increased Nonspecific T wave abnormality has replaced inverted T waves in Lateral leads Unconfirmed Result
[2016-06-04 15:50] LABS: MANUAL DIFF NEEDED? NO
[2016-06-04 15:52] LABS: BASO% 0.3 % (0.0-0.8); EOS# 0.03 X1000 (0.0-0.7); EOS% 0.3 % (0.0-10.0); HEMATOCRIT 35.5 % (37.0-47.0); HEMOGLOBIN 10.3 g/dL (12.0-16.0); IMM GRAN# 0.07 X1000 (0.0-0.04); IMM GRAN% 0.6 % (0.0-0.5); LYMPH# 1.96 X1000 (1.2-3.4); LYMPH% 18.1 % (20.5-51.1); MCH 22.2 PG (27-31); MCV 76.3 FL (81-99); MONO# 0.56 X1000 (0.11-0.59); MONO% 5.2 % (1.7-9.3); MPV 10.7 FL (7.4-10.4); NEUT% 75.5 % (42.2-75.2); PLT 232 X1000 (130-400); RBC 4.65 XMIL (4.2-5.4)
[2016-06-04 16:02] LABS: URINE CULTURE PL NEEDED? NO
[2016-06-04 16:08] LABS: BILIRUBIN URINE NEGATIVE (NEGATIVE); BLOOD URINE TRACE (NEGATIVE); CLARITY CLEAR (CLEAR); COLOR YELLOW; LEUKOCYTES URINE TRACE (NEGATIVE); NITRITE URINE NEGATIVE (NEGATIVE); PH URINE 6.5; PROTEIN URINE 2+(100 mg/dL) mg/dL (NEGATIVE); SP GRAVITY URINE 1.005; UROBILINOGEN URINE NORMAL
[2016-06-04 16:19] LABS: INR 1.23 (0.86-1.15); PROTIME 15.8 Seconds (12.1-15.5)
[2016-06-04 16:20] LABS: PTT PL 31.5 Seconds (22.6-43.9)
[2016-06-04 16:22] LABS: AGAP 13; ALBUMIN 3.3 g/dL (3.5-5.0); ALKALINE PHOSPHATASE 101 U/L (32-104); BUN 24 mg/dL (8-22); CALCIUM 9.3 mg/dL (8.8-10.2); CHLORIDE 96 mmol/L (98-107); CK PROFILE 80 U/L (24-173); COSMO 285; GOT 15 U/L (10-30); GPT 20 U/L (10-36); MAGNESIUM 1.8 mg/dL (1.5-2.7); POTASSIUM 4.6 mmol/L (3.5-5.1); SODIUM 134 mmol/L (136-145); TCO2 25 mmol/L (25-35); TOTAL PROTEIN 6.5 g/dL (6.3-8.3)
[2016-06-04 16:26] LABS: URINE EPITHELIAL CELLS <10 /HPF (<10); URINE RBC <10 /HPF (<10); URINE SOURCE CLEAN CATCH; URINE WBC <10 /HPF (<10)
--- NOTE | 2016-06-04 16:50 | PROVIDER DOCUMENTATION ---
This chart was entered by Sandhya Michael Scribe, acting as scribe for Christina Quiles MD. HPI-General Adult - General Chief Complaint: Weakness Stated Complaint: Weakness/URIOSTEGUI Time Seen by Provider: 06/04/16 14:34 Source: patient Allergies/Adverse Reactions: Patient Allergies Allergy/AdvReac Type Severity Reaction Status Date / Time Penicillins Allergy Mild RASH Verified 06/04/16 14:37 codeine [Codeine] Allergy Unknown Verified 06/04/16 14:37 metronidazole [From Flagyl] Allergy Unknown Verified 06/04/16 14:37 Metronidazole HCl * Allergy Unknown Verified 06/04/16 14:37 [From Flagyl] Sulfa (Sulfonamide Allergy Unknown Verified 06/04/16 14:37 Antibiotics) [Sulfa(Sulfonamide Antibiotics)] benzathine Allergy Unknown Uncoded 06/04/16 14:37 Home Medications: Home Medication List Medication Instructions Recorded Confirmed Last Taken Type Albuterol Sulfate [Proair Hfa] 2 puff IH PRN PRN 01/14/16 05/31/16 1 Day Ago History Dicyclomine [Bentyl] 10 mg PO BID 01/14/16 05/31/16 1 Day Ago History Furosemide [Lasix] 60 mg PO BID 01/14/16 05/31/16 1 Day Ago History Hydroxyzine HCl 25 mg PO Q6H PRN PRN 01/14/16 05/31/16 1 Day Ago History Levothyroxine [Synthroid] 175 microgm PO DAILY 01/14/16 05/31/16 1 Day Ago History Metformin HCl 1,000 mg PO BID 01/14/16 05/31/16 1 Day Ago History Nitroglycerin [Nitrostat] 0.4 mg SL PRN PRN 01/14/16 05/31/16 04/18/16 History Omeprazole 20 mg PO DAILY 01/14/16 05/31/16 1 Day Ago History Ondansetron [Zofran] 4 mg PO Q8H PRN PRN 01/14/16 05/31/16 1 Day Ago History Polyethylene Glycol 3350 17 gm PO QHS 01/14/16 05/31/16 1 Day Ago History Ranolazine [Ranexa] 1,000 mg PO BID 01/14/16 05/31/16 1 Day Ago History Sennosides/Docusate Sodium [Senna 4 tab PO BID PRN 01/14/16 05/31/16 1 Day Ago History Plus Tablet] Atorvastatin Calcium [Lipitor] 80 mg PO QHS 02/07/16 05/31/16 1 Day Ago History Sucralfate [Carafate] 1 gm PO 4XDAY 02/07/16 05/31/16 04/18/16 History Aspirin 81 mg PO DAILY #0 chewtab 02/08/16 05/31/16 1 Day Ago Rx Alprazolam 0.5 mg PO BID PRN 03/18/16 05/31/16 1 Day Ago History Insulin Glargine [Lantus] 30 unit SUBQ QHS 03/18/16 05/31/16 1 Day Ago History Metoclopramide HCl [Reglan] 5 mg PO TID PRN 03/18/16 05/31/16 04/18/16 History Potassium Chloride 10 meq PO DAILY 03/18/16 05/31/16 1 Day Ago History Tolterodine [Detrol] 4 mg PO HS 03/18/16 05/31/16 1 Day Ago History Benzonatate 200 mg PO Q4H PRN 04/19/16 05/31/16 1 Day Ago History LISINOpril [Prinivil] 5 mg PO DAILY 04/19/16 05/31/16 1 Day Ago History Levalbuterol Neb [Xopenex Neb] 1.25 mg INH Q4H PRN PRN 04/19/16 05/31/16 1 Day Ago History Megestrol Acetate [Megace] 40 mg PO DAILY 04/19/16 05/31/16 1 Day Ago History Acetaminophen [Tylenol] 500 - 1,000 mg PO Q6H PRN PRN 05/31/16 05/31/16 Unknown History Apixaban [Eliquis] 5 mg PO BID 05/31/16 05/31/16 Unknown History Collagenase Clostridium Hist. 250 units TP DAILY 05/31/16 05/31/16 Unknown History [Santyl] Fluticasone/Salmeterol [Advair 1 each IH BID 05/31/16 05/31/16 Unknown History 250-50 Diskus] Nystatin Susp [Mycostatin Susp] 100,000 unit PO 4XDAY 05/31/16 05/31/16 History [place]-3 Fatty Acids/Fish Oil [Fish 1 each PO BID 05/31/16 05/31/16 Unknown History Oil 1,000 mg Capsule] Ondansetron [Zofran Odt] 4 mg PO Q8H PRN 05/31/16 05/31/16 Unknown History Oxycodone HCl/Acetaminophen 1 each PO Q6-8H PRN PRN 05/31/16 05/31/16 1 Day Ago History [Percocet 5-325 mg Tablet] Prednisone 40 mg PO DAILY 05/31/16 05/31/16 Unknown History Pregabalin [Lyrica] 75 mg PO QHS 05/31/16 05/31/16 Unknown History Tiotropium [place] Inhaler 18 mcg IH DAILY 05/31/16 05/31/16 Unknown History [Spiriva] Diltiazem C.d. [Cardizem Cd] 180 mg PO DAILY #90 capsule 06/03/16 Unknown Rx Diltiazem L.a. [Cardizem LA] 180 mg PO DAILY #90 tablet 06/03/16 Unknown Rx - History of Present Illness -Gen Adult Location of Pain/Injury: reports: generalized Pain Radiation: reports: no radiation Quality of Pain: reports: aching Severity: reports: mild Onset/Duration: reports: last night Timing: reports: still present Context/Activities at Onset: reports: light activity Modifying Factors: improves with: nothing Associated Symptoms: reports: shortness of breath, weakness. denies: anxiety, arm pain, back/neck pain, chest pain, constipation, cough, diaphoresis, diarrhea , dizziness, EENT symptoms, fatigue, fever/chills, genitourinary problems, headaches, heartburn, joint pain, loss of appetite, malaise, muscle aches, sinus congestion/drainage, nausea, rash, seizure, sensory/motor loss, pain with inspiration, swelling/mass in abdomen, syncope, vomiting, trouble walking Similar Symptoms Previously?: Yes Recently seen or treated by another doctor?: Yes Review of Systems - Adult - REVIEW OF SYSTEMS - ADULT Constitutional: reports: no symptoms reported Eyes: reports: no symptoms reported Ears, Nose, Mouth & Throat: reports: no symptoms reported Cardiovascular: reports: no symptoms reported Respiratory: reports: shortness of breath. denies: cough, wheezing Gastrointestinal: reports: no symptoms reported Genitourinary: reports: no symptoms reported Musculoskeletal: reports: muscle weakness. denies: bone pain, joint pain Integumentary: reports: no symptoms reported Neurological: reports: no symptoms reported Psychiatric: reports: no symptoms reported Endocrine: reports: no symptoms reported Hematologic/Lymphatic: reports: no symptoms reported Allergic/Immunologic: reports: no symptoms reported All Other Systems: Reviewed and Negative Past History - Adult - PAST MEDICAL HISTORY-ADULT Review of Records: reports: Nursing Assessment Review, Medications Reviewed, Social history reviewed & non-contributory. Major Childhood Illnesses: reports: denies history Cardiovascular: reports: CAD, CHF, HTN, [place] Respiratory: reports: asthma, COPD, other Gastrointestinal: reports: denies history Obstetrical/Gynecological: reports: denies history Genitourinary: reports: denies history Musculoskeletal: reports: intervertebral disc disease, osteoporosis Neurological: reports: CVA Psychiatric: reports: anxiety Endocrine/Immune: reports: Diabetes, thyroid disorder Other Conditions: reports: denies history Additional History: 3L of home O2 - PRIOR SURGERIES/PROCEDURES Surgical/Procedure History: reports: CABG, cholecystectomy, hysterectomy, joint replacement, breast - PRIOR HOSPITALIZATIONS Prior Hospitalizations: reports: psychiatric or rehab (rehab 2 mos ago) - IMMUNIZATION STATUS Childhood Immunizations: See Nurse Assessment Flu Vaccine: See Nurse Assessment - FAMILY HISTORY Family History: reviewed, not pertinent - SOCIAL HISTORY Smoking: cigarettes, greater than 1 pack/day Provider spent 3-5 mins advising pt. on dangers of tobacco.: Discussed manners to quit use, and f/u contacts for add'l counseling. Substance Use: denies Living Situation: friend Physical Exam-General - PHYSICAL EXAM-ADULT Initial Vital Signs Reviewed: Yes - CONSTITUTIONAL General Appearance: alert, mild distress. negative: appears well (ill in appearance) - EYES Eyes: PERRL/EOMI, pink conjunctivae - HEAD, EARS, NOSE, MOUTH & THROAT HENMT: normocephalic/atraumatic, moist mucous membranes, normal ENT inspection, TMs normal, pharynx normal - NECK Neck: non-tender, full range of motion, supple, normal inspection - RESPIRATORY Respiratory: chest non-tender, lungs clear, normal breath sounds, no pleuratic chest pain, no respiratory distress, no accessory muscle use, increased rate - CARDIOVASCULAR Cardiovascular: normal peripheral pulses, no edema, no gallop, no JVD, no murmur , tachycardia - GASTROINTESTINAL (ABDOMEN) Abdominal Exam: normal bowel sounds, non tender, soft, no organomegaly, no pulsatile mass - LYMPHATIC Lymphatic: no adenopathy - MUSCULOSKELETAL Back Exam: normal inspection, no CVA tenderness, no vertebral tenderness Extremity: normal range of motion, normal inspection, swelling (bilateral legs) , tenderness (L leg swelling) - SKIN Integumentary: normal color, normal turgor, warm/dry - NEUROLOGIC Neurologic: grossly normal - PSYCHIATRIC Psych/Mental Status: normal mood/affect, oriented x 3 Progress - PLAN OF CARE/RESULTS Progress/Plan/Lab Results: Vital Signs - 8 hr 06/04/16 14:31 Temperature 98.6 F Pulse Rate 89 Respiratory Rate 26 H Blood Pressure 108/65 O2 Sat by Pulse Oximetry 97 Result Diagrams: 06/04/16 15:30 06/04/16 15:30 - EKG 1 Time of EKG reading by physician:: 14:27 EKG Read and Signed by:: Christina Quiles EKG Interpretation (*Must complete 3 of following elements*): Abnormal (minimal voltage criteria for LVH, may be normal variant) Rate: 100 Rhythm: normal sinus rhythm Comments: RBBB; left anterior fascicular block; bifascicular block; 2 Time of EKG reading by physician:: 15:11 EKG Read and Signed by:: Christina Quiles EKG Interpretation (*Must complete 3 of following elements*): Abnormal ( moderate voltage criteria for LVH, may be normal variant) Rate: 87 Rhythm: atrial flutter with variable AV block Comments: left axis deviation; RBBB; - XRAY 1 XRAY: Bilateral XRAY Study: Chest Impression: Normal XRAY Interpretation: no change from prior - CONSULTS/PCP/HOSPITALIST Notification #1 *Consult/PCP/Hospitalist*: Dr. Orantes Time Discussed: 16:45 Reason/Comments: Dr. Quiles consults with Dr. Orantes about admit of Pt Consult Disposition: Admit Departure - Departure Time of Disposition Decision: 16:49 DIAGNOSIS: Elevated troponin, Generalized weakness Disposition: ADMITTED INPATIENT 09 Certified Medical Emergency: Emergent Condition: Stable Referrals and Follow-Ups: None,PCP [Primary Care Provider] - - Critical Care Note This patient required my direct personal management.: No This chart was documented by the indicated scribe, (Sandhya Michael Scribe) and accurately reflects the services I performed and decisions made by me, Christina Quiles MD, as attested by the provider's signature.
[2016-06-04] MEDS ORDERED: DUONEB (A & A) INH PRN (18:02)
--- NOTE | 2016-06-04 18:17 | HISTORY AND PHYSICAL ---
CHIEF COMPLAINT: Shortness of breath and weakness. HISTORY OF PRESENT ILLNESS: Briefly, this is a 70-year-old female who was recently discharged for CHF exacerbation. She came back in with worsening shortness of breath, difficulty ambulating secondary to weakness. She denies any eliazar chest pain. She said she was feeling well yesterday when she went home however over the last 24 hours she has had progressive shortness of breath. She has had to increase her oxygen up to 5 L. She denies any eliazar chest pain, back pain but she felt similar to when she had her CHF exacerbation previously. Workup in the ER here was fairly unremarkable except for a positive elevated troponin. Her EKG really just showed a right bundle- branch block which is not new for her. Otherwise clinically she appears somewhat volume overloaded. Chest x-ray looks about stable which means bilateral pleural effusions, bilateral interstitial air space disease. She is already on Eliquis for atrial fibrillation. The patient was placed in observation for CHF exacerbation, elevated troponin with concern over possible non- ST-elevation SD versus ACS. PAST MEDICAL HISTORY: 1. Atrial fibrillation which she is currently in. 2. Congestive heart failure. 3. CAD status post CABG. 4. Diabetes non-insulin dependent. 5. COPD on chronic home oxygen at 3 L. 6. GERD. 7. Sleep apnea. 8. History of CVA. 9. Diabetic foot ulcer. PAST SURGICAL HISTORY: 1. CABG. 2. Cholecystectomy. 3. Hysterectomy. 4. Breast reduction. 5. Left heel excision. ALLERGIES: Penicillin, codeine, Flagyl and sulfa. MEDICATIONS: Her medication list is being compiled but she was discharged on the current medications: Cardizem which she had been on for atrial fibrillation with rapid ventricular response and Lasix. PHYSICAL EXAMINATION: VITAL SIGNS: Blood pressure 120/72, heart rate 98, respiratory rate 24, temperature 98.6 degrees, 94% on 3 L. GENERAL: A well-developed female, appears in mild distress associated with shortness of breath. HEENT: Pupils equal, round, reactive to light. Extraocular movements were intact. She does have possibly some scleral discoloration. NECK: Supple. CARDIOVASCULAR EXAMINATION: Soft S1-S2 and irregularly irregular heart rate. PULMONARY: Rales at the bases. Occasional rhonchi. GASTROINTESTINAL: Soft, protuberant. She has a hernia in her periumbilical area. Nondistended. Bowel sounds were positive with bowel sounds into the chest area consistent with likely hiatal hernia. EXTREMITIES: No clubbing or cyanosis. SKIN EXAMINATION: She has brawny changes, dressing over her left lower extremity, 1+ pitting edema bilaterally. NEUROLOGIC: Nonfocal. MUSCULOSKELETAL: 4/5 in all 4 extremities. LABORATORY DATA: White count 10.8, hemoglobin and hematocrit 10 and 35 with MCV of 76, platelets 132, INR 1.2. She is just on Eliquis. Sugar 327, troponin was elevated at 0.1 with a normal CPK. BNP is 5305 which is down from what it was on admission, about the same as it was in April. Her troponins have previously been normal at least through April. PROBLEM LIST: 1. Congestive heart failure exacerbation. We will continue breathing treatments, Lasix and follow clinically. We will check serial cardiac enzymes. 2. Chronic obstructive pulmonary disease. We will continue breathing treatments and follow clinically. No evidence of infiltrate at this point. She does have some mild leukocytosis but I believe she recently received steroids. 3. Diabetes. We will continue to follow very closely. Continue sliding scale. 4. Elevated troponin, likely troponin leak. Her EKG is unrevealing. CPKs are normal. We will trend these out and get Cardiology opinion although I think it is not an acute event at this point, but difficult to completely assess. Her kidney function is normal. Again her CPKs are normal. We will follow clinically. 5. Atrial fibrillation. We will continue Cardizem and adjust dose accordingly for rate control. She is already on Eliquis. 6. Hospice patient. cc: Gino Orantes MD
[2016-06-04] MEDS: DUONEB (A & A) INH SCH ×2 (19:55→23:16)
[2016-06-04] MEDS ORDERED: HYDROXYZINE PO PRN (20:08)
[2016-06-04] MEDS ORDERED: TESSALON PO PRN (20:08)
[2016-06-04] MEDS ORDERED: REGLAN PO PRN (20:08)
[2016-06-04] MEDS ORDERED: NITROGLYCERIN SL PRN (20:08)
[2016-06-04] MEDS ORDERED: ZOFRAN ODT PO PRN (20:08)
[2016-06-04] MEDS ORDERED: TYLENOL PO PRN (20:08)
[2016-06-04] MEDS ORDERED: PERICOLACE PO PRN (20:08)
[2016-06-04] MEDS ORDERED: VENTOLIN HFA INH PRN (20:08)
[2016-06-04] MEDS ORDERED: XOPENEX NEB INH PRN (20:08)
[2016-06-04] MEDS ORDERED: LASIX PO SCH (21:00)
[2016-06-04] MEDS ORDERED: ELIQUIS PO SCH (21:00)
[2016-06-04] MEDS ORDERED: LANTUS INSULIN (PARKWAY) SUBQ SCH (21:00)
[2016-06-04] MEDS: HUMULIN R (PARKWAY) SUBQ SCH (22:40)
[2016-06-04] MEDS: RANEXA PO SCH (22:47)
[2016-06-04] MEDS: DETROL PO SCH (22:50)
[2016-06-04] MEDS: CARAFATE PO SCH (22:53)
[2016-06-04] MEDS: BENTYL PO SCH (22:54)
[2016-06-04] MEDS: FISH OIL CONCENTRATE PO SCH (22:54)
[2016-06-04] MEDS: LYRICA PO SCH (22:54)
[2016-06-04] MEDS: ELIQUIS PO SCH (22:55)
[2016-06-04] MEDS: PERCOCET-5 PO PRN (22:55)
[2016-06-04] MEDS: MYCOSTATIN SUSP PO SCH (22:56)
[2016-06-04] MEDS: CARDIZEM PO SCH (22:57)
[2016-06-04] MEDS: LIPITOR PO SCH (22:57)
[2016-06-05] MEDS: LASIX IV SCH ×3 (00:17→19:23)
[2016-06-05] MEDS: MIRALAX PO SCH ×2 (00:19→23:46)
[2016-06-05] MEDS: GLUCOPHAGE PO SCH ×3 (01:20→16:41)
[2016-06-05] MEDS: CARDIZEM PO SCH ×4 (02:13→22:01)
[2016-06-05] MEDS: DUONEB (A & A) INH SCH ×2 (04:13→07:39)
[2016-06-05 05:56] LABS: HEMATOCRIT 35.4 % (37.0-47.0); HEMOGLOBIN 10.1 g/dL (12.0-16.0); MCH 21.4 PG (27-31); MCHC 28.5 g/dL (33-37); MPV 10.7 FL (7.4-10.4); RBC 4.72 XMIL (4.2-5.4)
[2016-06-05 06:09] LABS: AGAP 11; BUN 21 mg/dL (8-22); CALCIUM 9.1 mg/dL (8.8-10.2); CHLORIDE 94 mmol/L (98-107); COSMO 280; POTASSIUM 4.3 mmol/L (3.5-5.1); SODIUM 134 mmol/L (136-145); TCO2 29 mmol/L (25-35)
[2016-06-05] MEDS: HUMULIN R (PARKWAY) SUBQ SCH ×4 (06:25→21:57)
[2016-06-05] MEDS: SPIRIVA INH SCH (07:42)
[2016-06-05] MEDS: ADVAIR 250/50 DISKUS INH SCH ×2 (07:43→19:32)
[2016-06-05] MEDS ORDERED: LANOXIN IV ONE (07:58)
[2016-06-05] MEDS: SYNTHROID PO SCH ×2 (07:59)
[2016-06-05] MEDS ORDERED: SAMSCA PO ONE (07:59)
[2016-06-05] MEDS ORDERED: XOPENEX NEB INH PRN (08:00)
--- NOTE | 2016-06-05 08:57 | CONSULTATION ---
DATE OF CONSULTATION: 06/05/2016 INDICATION: Shortness of breath. Mild elevation of the troponin. History of congestive heart failure. HISTORY OF PRESENT ILLNESS: Ms. Marlow is a 70-year-old female who recently had an admission for a CHF exacerbation. She apparently was discharged around 24 hours when she came back with increasing shortness of breath. Her baseline oxygen requirement is 3 L. She increased that to 5. She has had really no change in her symptoms over that time period other than continued shortness of breath. She denies any episodes of chest pain or heart racing. No fevers in that interim time period. She reports compliance with her medications. Unfortunately, she continues to smoke with advanced COPD. She denies any orthopnea presently. She is lying fairly flat in bed. She has not had any episodes of palpitations during this hospitalization. She continues to have issues with lower extremity edema which is quite chronic for her. PAST MEDICAL HISTORY: Significant for 1. Chronic atrial fibrillation maintained on Eliquis. 2. COPD on home oxygen therapy. 3. She has diastolic heart failure with last ejection fraction of 55%-60% documented in 09/2015. At that time, she had mild enlargement of the right ventricle. Echo is currently pending from this hospitalization. 4. Coronary artery disease with history of bypass grafting. Normal perfusion on nuclear scan, I believe in 2014. 5. Type 2 diabetes. 6. Reflux disease. 7. Sleep apnea. 8. Chronic wound care therapy for left lower extremity ulcer as well as a sacral ulcer. 9. History of stroke. SOCIAL HISTORY: She continues to smoke. No alcohol use. FAMILY HISTORY: Significant for hypertension. REVIEW OF SYSTEMS: A 10-system review of systems is negative except for those things as mentioned in the HPI. PHYSICAL EXAMINATION: She is afebrile. Her heart rates have been somewhat variable. Most recently, she was in the 120s, currently receiving nebulizer treatments. During this hospitalization, she has been anywhere from the 90s to 120s. Her blood pressure is 125/70. She had a negative fluid balance during her previous hospitalization with limited data available for this hospitalization that she was admitted last night. Generally, she is in no acute distress. She is ill appearing. HEENT: Oropharynx is moist. Poor dentition. Eye examination shows pink conjunctivae. White sclerae. Her neck examination shows no obvious thyromegaly or thyroid tenderness. Cardiovascular: She is in a tachycardic, somewhat irregular rhythm. She has no obvious murmurs. She has 1+ bilateral lower extremity edema, somewhat worse on the left where the wound is on her left foot. Her chest exam is very coarse. I do not hear any audible wheezing. Again, she is currently getting a nebulizer treatment. No increased work of breathing. Abdomen is soft, nontender, nondistended. No obvious organomegaly. Skin exam is notable for bandaged wounds on the left foot as well as the sacrum. Neurologic. She is moving all extremities well. No lateralizing deficits. Psychiatric: She is alert, oriented, pleasant. PERTINENT DATA: She had a chest x-ray from 06/04/2016 demonstrating pulmonary vascular congestion. No obvious changes from recent study on 05/31/2016. She had an EKG from 1427 yesterday showing a right bundle branch block which is chronic for her appearance of atrial flutter on that study with rapid ventricular response. EKG at 1511 yesterday shows right bundle branch block and, again, appearance of what appears to be atrial flutter. LABORATORY DATA: White count 9, hematocrit 35.4, platelet count 235. Sodium is 134, potassium is 4.3. BUN 21, creatinine 0.7. ProBNP 7966. She has had cardiac enzymes checked during this hospitalization. Initial was 0.101; subsequent 0.080, 057 and 0.046. Again, no chest pain occurring during these episodes. ASSESSMENT: 1. Diastolic heart failure exacerbation. 2. Chronic obstructive pulmonary disease exacerbation. 3. Mild elevation of the troponin. PLAN: We will treat this as a CHF exacerbation. Echo is currently pending. I have increased her lisinopril up to 10 mg. I agree with continued diuresis, and I will give her a 15 mg dose of Samsca. I will change her albuterol nebulizers over to Xopenex to see if we can help with her heart rate. I will give her 0.125 IV digoxin today as well as 0.125 orally starting tomorrow. Hopefully, with continued fluid removal and adjustment in her baseline medications like lisinopril and digoxin, we can get better control of her atrial fibrillation as well as her heart failure. I have spoken with the patient regarding hospice. She currently has home health in place via [facility] and the nurse that she sees with [facility] is also a hospice nurse and has had extensive discussions with her regarding this. She is considering going back on hospice with them, which I feel is an appropriate situation since she has advanced COPD, significant heart failure, and she has had frequent hospitalizations with one in January, one in March, one in April, and now two in May. cc: Naeem Hernández MD
[2016-06-05] MEDS ORDERED: PRINIVIL PO SCH (09:00)
[2016-06-05] MEDS ORDERED: PREDNISONE PO SCH (09:00)
[2016-06-05] MEDS ORDERED: SYNTHROID PO SCH (09:00)
[2016-06-05] MEDS ORDERED: PRILOSEC PO SCH (09:00)
[2016-06-05] MEDS ORDERED: CARDIZEM CD PO SCH (09:00)
[2016-06-05] MEDS: ASPIRIN PO SCH (10:24)
[2016-06-05] MEDS: FISH OIL CONCENTRATE PO SCH ×2 (10:24→22:00)
[2016-06-05] MEDS: BENTYL PO SCH ×2 (10:24→22:02)
[2016-06-05] MEDS: PRINIVIL PO SCH (10:25)
[2016-06-05] MEDS: KLOR-CON PO SCH (10:25)
[2016-06-05] MEDS: CARAFATE PO SCH ×4 (10:25→22:02)
[2016-06-05] MEDS: MYCOSTATIN SUSP PO SCH ×4 (10:25→22:00)
[2016-06-05] MEDS: ELIQUIS PO SCH ×2 (10:26→22:01)
[2016-06-05] MEDS: RANEXA PO SCH ×2 (10:26→22:00)
[2016-06-05] MEDS: MEGACE PO SCH (10:26)
[2016-06-05] MEDS: SANTYL OINT TOP SCH (10:58)
[2016-06-05] MEDS: PERCOCET-5 PO PRN ×2 (11:58→22:31)
[2016-06-05] MEDS: ATROVENT NEB INH SCH ×4 (12:04→22:37)
[2016-06-05] MEDS: XOPENEX NEB INH SCH ×4 (12:05→22:37)
[2016-06-05] MEDS ORDERED: FLAGYL PO SCH (13:00)
--- NOTE | 2016-06-05 13:43 | PROGRESS NOTE ---
DATE: 06/05/2016 SUBJECTIVE: Patient has no focal complaints. Breathing is better. OBJECTIVE: Vital Signs: Blood pressure 125/70, heart rate of 98, respiratory rate 20, temperature 98.1 degrees, 92% on 3L. Cardiovascular: Regular rate and rhythm. Pulmonary: Bilateral breath sounds. Clear to auscultation. Gastrointestinal: Soft, nontender, nondistended. Bowel sounds are positive. LABORATORY DATA: White count is 9, hemoglobin and hematocrit 10 and 35, MCV 75, platelets 235,000. BUN and creatinine 21 and 0.7. Sodium 134. BNP, unfortunately, has gone up at 7966. Repeat troponins were negative, 0.057 and 0.046. PROBLEM LIST: 1. Congestive heart failure exacerbation. Continue diuretics. Cardiology has evaluated the patient and adjusted medications accordingly, namely adding digoxin and also tolvaptan. 2. Elevated troponin that was just a 1-time order, apparently, so we will continue to monitor. Echocardiogram is pending. 3. Atrial fibrillation. She is on Cardizem 60 q.6 and digoxin. Probably transition her to 240 a day if she is stable. She had previously been on 180. Additionally, Dr. Hernández looks like he switched her to Xopenex. DISPOSITION: Clinically, she is improving. Possibly home next 24 hours. cc: Gino Orantes MD
[2016-06-05] MEDS: VANCOCIN PO SCH ×2 (13:56→22:01)
--- NOTE | 2016-06-05 15:14 | ECHO REPORT ---
ORDER DATE: 06/05/2016 PROCEDURE: Echocardiogram. DATE OF STUDY: 06/05/2016. INDICATION: Congestive heart failure. FINDINGS: 1. The right atrium is mildly enlarged at 4.2 cm. 2. There is a suggestion of moderate to possibly severe tricuspid regurgitation. The RV systolic pressure is 41. 3. Right ventricle does appear to be markedly enlarged. There is mild reduction in RV systolic function. 4. Mild pulmonic insufficiency. 5. The left atrium appears to be mildly enlarged at 4.8 cm. 6. No mitral valve prolapse. Mild mitral regurgitation. 7. The left ventricle appears normal in size with an end-diastolic dimension of 5.7. There is moderate left ventricular hypertrophy with posterior and interventricular septal wall thickness of 1.5 and 1.4 cm respectively. The LV systolic function appears mildly reduced with an estimated EF of 45%. There is global hypokinesis. 8. Aortic valve opens well. It is calcified. There is mild aortic insufficiency. No evidence of stenosis. 9. Aorta appears normal in visualized segments. 10. No pericardial effusion seen. 11. Patient appears to be in atrial fibrillation with rates in the one hundreds to one-tens. IMPRESSION: Compared to the study in September of 2015, the ejection fraction does appear to have reduced from 55 to 60 in September to 45% at that time. Otherwise, the right ventricular function appears to have decreased as well. cc: MD Gino Beal MD
--- NOTE | 2016-06-05 21:45 | EKG Report ---
Test Performed on : 06/05/2016 9:36:43 PM Test Reason : Tachy Blood Pressure : / mmHG Vent. Rate : 133 BPM Atrial Rate : 065 BPM P-R Int : 000 ms QRS Dur : 152 ms QT Int : 402 ms P-R-T Axes : 000 -65 -28 degrees QTc Int : 598 ms Wide QRS tachycardia. Left axis deviation Right bundle branch block Minimal voltage criteria for LVH, may be normal variant T wave abnormality, consider inferolateral ischemia Abnormal ECG When compared with ECG of 04-JUN-2016 15:11, (Unconfirmed) Wide QRS tachycardia. has replaced Atrial flutter. Vent. rate has increased BY 46 BPM Confirmed by Lul Gillespie MD ([id number]) on 06/10/2016 4:54:32 AM
[2016-06-05] MEDS: LANTUS INSULIN (PARKWAY) SUBQ SCH (21:57)
[2016-06-05] MEDS: LYRICA PO SCH (22:01)
[2016-06-05] MEDS: LIPITOR PO SCH (22:01)
[2016-06-05] MEDS: DETROL PO SCH (22:02)
[2016-06-05] MEDS: XANAX PO PRN (22:32)
[2016-06-06] MEDS: CARDIZEM PO SCH ×5 (02:28→20:50)
[2016-06-06] MEDS: VANCOCIN PO SCH ×5 (02:28→20:50)
[2016-06-06] MEDS: XOPENEX NEB INH SCH ×6 (04:04→22:45)
[2016-06-06] MEDS: ATROVENT NEB INH SCH ×6 (04:04→22:45)
[2016-06-06] MEDS: SYNTHROID PO SCH ×2 (06:29)
[2016-06-06] MEDS: LASIX IV SCH ×3 (06:29→18:43)
[2016-06-06] MEDS: HUMULIN R (PARKWAY) SUBQ SCH ×4 (06:32→20:51)
[2016-06-06 06:50] LABS: IRON SATURATION 8 %; TIBC 281 ug/dL; TOTAL IRON 23 ug/dL (49-151); UNBOUND IRON 258 ug/dL (112-346)
[2016-06-06 07:01] LABS: AGAP 13; BUN 24 mg/dL (8-22); CALCIUM 8.9 mg/dL (8.8-10.2); CHLORIDE 99 mmol/L (98-107); COSMO 284; POTASSIUM 3.2 mmol/L (3.5-5.1); SODIUM 138 mmol/L (136-145); TCO2 26 mmol/L (25-35)
[2016-06-06] MEDS: ADVAIR 250/50 DISKUS INH SCH ×2 (08:47→19:54)
[2016-06-06] MEDS: SPIRIVA INH SCH (08:48)
[2016-06-06] MEDS: PRILOSEC PO SCH (08:56)
[2016-06-06] MEDS: MYCOSTATIN SUSP PO SCH ×4 (08:56→20:49)
[2016-06-06] MEDS: RANEXA PO SCH ×2 (08:56→20:50)
[2016-06-06] MEDS: MEGACE PO SCH (09:08)
[2016-06-06] MEDS: LANOXIN PO SCH (09:08)
[2016-06-06] MEDS: PREDNISONE PO SCH (09:08)
[2016-06-06] MEDS: CARAFATE PO SCH ×4 (09:09→20:50)
[2016-06-06] MEDS: ASPIRIN PO SCH (09:09)
[2016-06-06] MEDS: BENTYL PO SCH ×2 (09:09→20:50)
[2016-06-06] MEDS: FISH OIL CONCENTRATE PO SCH ×2 (09:09→20:50)
[2016-06-06] MEDS: ELIQUIS PO SCH ×2 (09:09→20:51)
[2016-06-06] MEDS: KLOR-CON PO SCH (09:09)
[2016-06-06] MEDS: GLUCOPHAGE PO SCH ×2 (09:09→16:34)
[2016-06-06] MEDS: PRINIVIL PO SCH (09:10)
[2016-06-06] MEDS: SANTYL OINT TOP SCH (09:10)
[2016-06-06] MEDS ORDERED: KLOR-CON PO ONE (09:40)
[2016-06-06] MEDS: PERCOCET-5 PO PRN ×2 (16:34→20:51)
[2016-06-06] MEDS: DETROL PO SCH (20:49)
[2016-06-06] MEDS: LIPITOR PO SCH (20:50)
[2016-06-06] MEDS: LYRICA PO SCH (20:50)
[2016-06-06] MEDS: XANAX PO PRN (20:51)
[2016-06-06] MEDS: LANTUS INSULIN (PARKWAY) SUBQ SCH (20:54)
[2016-06-07] MEDS: VANCOCIN PO SCH ×3 (02:12→13:06)
[2016-06-07] MEDS: CARDIZEM PO SCH ×3 (02:12→13:06)
[2016-06-07] MEDS: MIRALAX PO SCH (03:16)
[2016-06-07] MEDS: XOPENEX NEB INH SCH ×3 (03:17→12:07)
[2016-06-07] MEDS: ATROVENT NEB INH SCH ×3 (03:17→12:07)
[2016-06-07] MEDS: LASIX IV SCH (07:03)
[2016-06-07] MEDS: PRILOSEC PO SCH (07:03)
[2016-06-07] MEDS: SYNTHROID PO SCH ×2 (07:03)
[2016-06-07 07:30] VITALS: BP 105/51
[2016-06-07] MEDS: HUMULIN R (PARKWAY) SUBQ SCH ×2 (07:45→11:06)
[2016-06-07] MEDS: SPIRIVA INH SCH (08:06)
[2016-06-07] MEDS: ADVAIR 250/50 DISKUS INH SCH (08:07)
[2016-06-07] MEDS: PRINIVIL PO SCH (08:09)
[2016-06-07] MEDS: ASPIRIN PO SCH (08:10)
[2016-06-07] MEDS: MEGACE PO SCH (08:10)
[2016-06-07] MEDS: MYCOSTATIN SUSP PO SCH ×2 (08:10→13:06)
[2016-06-07] MEDS: RANEXA PO SCH (08:10)
[2016-06-07] MEDS: FISH OIL CONCENTRATE PO SCH (08:10)
[2016-06-07] MEDS: GLUCOPHAGE PO SCH (08:10)
[2016-06-07] MEDS: LANOXIN PO SCH (08:11)
[2016-06-07] MEDS: PREDNISONE PO SCH (08:11)
[2016-06-07] MEDS: KLOR-CON PO SCH (08:11)
[2016-06-07] MEDS: BENTYL PO SCH (08:11)
[2016-06-07] MEDS: ELIQUIS PO SCH (08:12)
[2016-06-07] MEDS: CARAFATE PO SCH ×3 (10:33→15:17)
[2016-06-07] MEDS ORDERED: KLOR-CON PO ONE (10:33)
[2016-06-07] MEDS: SANTYL OINT TOP SCH (10:34)
[2016-06-07] MEDS: PERCOCET-5 PO PRN (13:12)
[2016-06-07] MEDS ORDERED: FLAGYL PO ONE ×2 (15:05→15:15)
[2016-06-07] MEDS ORDERED: FLAGYL PO SCH (22:00)
--- NOTE | 2016-07-10 22:17 | DISCHARGE SUMMARY ---
ADMISSION DATE: 06/04/2016 DISCHARGE DATE: 06/07/2016 ADMISSION DIAGNOSES: 1. Congestive heart failure exacerbation. 2. Chronic obstructive pulmonary disease exacerbation. 3. Diabetes. 4. Elevated troponin. 5. Atrial fibrillation. CONSULTATIONS: Naeem Hernández MD for elevated troponins and CHF. PROCEDURES: Echocardiogram: Evaluation showed an EF of 45%. RV function was stable compared to previous echo in 2016. She had a drop in her EF to 45% from 55-60%. Moderate to severe TR was noted which I do not think is a change. HOSPITAL COURSE: Patient was admitted, placed on IV diuretics. She came in with shortness of breath. Initially chest x-ray increased O2 requirement. She was placed on diuretics, breathing treatments, she had some mild leukocytosis and again she had mild elevation of troponins but it was not felt to be an acute ischemic event. She was placed on digoxin and She was on Cardizem and digoxin usually on 240 a day. On the patient was breathing more comfortably and she was felt stable for discharge. Heart rate had decreased into the 90s. Sats were 96% on 3 L but she was on baseline oxygen. DISCHARGE MEDICATIONS: 1. Tylenol p.r.n. 2. ProAir. 3. Xanax 0.5 b.i.d. 4. Eliquis 5 b.i.d. 5. Aspirin 81 daily. 6. Lipitor 80 daily. 7. Tessalon p.r.n. 8. Collagenase daily. 9. Bentyl 10 b.i.d. 10. Digoxin 125 daily which is a new medication. 11. Cardizem 240 which was an increase. 12. Advair 250/50 b.i.d. 13. Lasix 60 b.i.d. 14. Hydroxyzine 25 q.6 hours p.r.n. 15. Lantus 30 daily. 16. Xopenex 1.25 q.4 hours. 17. Synthroid 175 daily. 18. Lisinopril 5 daily. 19. Megace 40 daily. 20. Metformin 1 g b.i.d. 21. Reglan 5 t.i.d. 22. Flagyl 500 t.i.d. 23. Nitrostat p.r.n. 24. Mycostatin p.r.n. 25. [place]-3 fatty acids 20 daily, 26. Zofran p.r.n. 27. Percocet p.r.n. 28. MiraLAX 17 daily, 29. Potassium 10 daily. 30. Prednisone 40 daily. 31. Lyrica 75 mg daily. 32. Ranexa 1 g b.i.d. 33. Senokot 4 b.i.d. 34. Carafate 1 q.i.d. 35. Spiriva 18 daily. 36. Hold Detrol 4 mg daily. 37. I think she also developed some diarrhea and she was C. difficile positive so she did get treatment with Flagyl. DISCHARGE CONDITION: Stable. FOLLOWUP: Told to follow up with her PCP in 1-2 weeks and [facility]. Return for worsening diarrhea. cc: Gino Orantes MD
== END 2016-06-07 16:09 | disposition home health service (06) ==
LOC: P.ED 14:29 → P.MEDSURG 17:19
PROVIDERS: ATTEND Internal Medicine

== ENCOUNTER 2016-07-13 11:32 | Inpatient (IN) ==
--- NOTE | 2016-07-13 11:55 | EKG Report ---
Test Performed on : 07/13/2016 11:35:32 AM Test Reason : CHEST PAIN Blood Pressure : / mmHG Vent. Rate : 045 BPM Atrial Rate : 041 BPM P-R Int : 000 ms QRS Dur : 154 ms QT Int : 486 ms P-R-T Axes : 000 -63 102 degrees QTc Int : 420 ms Wide QRS rhythm. Left axis deviation Right bundle branch block Left ventricular hypertrophy with repolarization abnormality Abnormal ECG When compared with ECG of 08-JUL-2016 11:22, Wide QRS rhythm. has replaced Sinus rhythm. Unconfirmed Result
[2016-07-13 11:56] LABS: MANUAL DIFF NEEDED? NO
[2016-07-13 11:58] LABS: BASO% 0.4 % (0.0-0.8); EOS# 0.01 X1000 (0.0-0.7); EOS% 0.1 % (0.0-10.0); HEMATOCRIT 34.4 % (37.0-47.0); HEMOGLOBIN 10.3 g/dL (12.0-16.0); IMM GRAN# 0.17 X1000 (0.0-0.04); IMM GRAN% 1.5 % (0.0-0.5); LYMPH# 1.73 X1000 (1.2-3.4); LYMPH% 15.5 % (20.5-51.1); MCHC 29.9 g/dL (33-37); MONO# 0.44 X1000 (0.11-0.59); MONO% 3.9 % (1.7-9.3); MPV 10.1 FL (7.4-10.4); NEUT% 78.6 % (42.2-75.2); PLT 232 X1000 (130-400); RBC 4.47 XMIL (4.2-5.4)
[2016-07-13 12:18] LABS: INR 1.41 (0.86-1.15); PROTIME 17.5 Seconds (12.1-15.5); PTT PL 31.6 Seconds (22.6-43.9)
[2016-07-13 12:23] LABS: BE 4.3 mmoll (-3.0-3.0); BLOOD TYPE ARTERIAL; DRAW SITE R BRACHIAL; METHB 0.7 % (0.0-1.5); O2(CT) 12.9 mL/dL (15.0-23.0); PCO2(98.6) 44 mmHg (35-45); PO2(98.6) 57 mmHg (60-100); SAMPLE BLOOD; SAO2 92.8 % (95.0-100.0); THB 10.2 g/dL (11.5-17.4); pH(98.6) 7.43 (7.35-7.45)
[2016-07-13 12:25] LABS: ALLEN TEST NO; MODALITY CANNULA
[2016-07-13 12:26] LABS: AGAP 16; ALBUMIN 3.3 g/dL (3.5-5.0); ALKALINE PHOSPHATASE 68 U/L (32-104); BUN 24 mg/dL (8-22); CALCIUM 8.2 mg/dL (8.8-10.2); CHLORIDE 92 mmol/L (98-107); CK PROFILE 58 U/L (24-173); COSMO 283; GOT 19 U/L (10-30); GPT 21 U/L (10-36); MAGNESIUM 1.3 mg/dL (1.5-2.7); POTASSIUM 5.8 mmol/L (3.5-5.1); SODIUM 131 mmol/L (136-145); TCO2 24 mmol/L (25-35); TOTAL PROTEIN 6.2 g/dL (6.3-8.3)
--- NOTE | 2016-07-13 12:35 | Diag Imaging Result Doc PS360 ---
EXAM: CHEST-2 VIEWS INDICATION: CP TECHNIQUE: 2 views COMPARISON: 06/09/2016 FINDINGS: Inspiration is suboptimal. There is linear atelectasis at the right mid to lower lung zone that appears to have worsened slightly. There is overlying soft tissue attenuation at the lung bases. Otherwise, no definite new consolidation is appreciated. There is no discrete pleural fluid collection or pneumothorax. The cardiac silhouette is prominent but stable. There are stable CABG changes. IMPRESSION: Poor inspiration and worsening of atelectasis in the right mid to lower lung zone. Essentially stable chest, otherwise. Electronically signed by Jose Birmingham 07/13/2016 12:32 PM
[2016-07-13] MEDS ORDERED: DUONEB (A & A) INH ONE ×2 (12:40→13:04)
[2016-07-13] MEDS ORDERED: DUONEB (A & A) ONE (12:58)
--- NOTE | 2016-07-13 14:08 | EKG Report ---
Test Performed on : 07/13/2016 1:59:29 PM Test Reason : REPEAT Blood Pressure : / mmHG Vent. Rate : 042 BPM Atrial Rate : 084 BPM P-R Int : 000 ms QRS Dur : 166 ms QT Int : 588 ms P-R-T Axes : 000 -62 119 degrees QTc Int : 490 ms Wide QRS rhythm. Right bundle branch block Left anterior fascicular block Bifascicular block Left ventricular hypertrophy with repolarization abnormality Abnormal ECG When compared with ECG of 13-JUL-2016 11:35, (Unconfirmed) No significant change was found Unconfirmed Result
[2016-07-13] MEDS ORDERED: [UNRECOGNIZED DRUG - OTHER] IV ONE (15:00)
[2016-07-13] MEDS ORDERED: NS IV ONE (15:00)
[2016-07-13] MEDS ORDERED: MAGNESIUM SULFATE 2 GM/S.W.I. 2 GM/50 ML IVPB IV ONE (15:31)
[2016-07-13] MEDS ORDERED: ZOFRAN IV PRN (15:31)
[2016-07-13] MEDS ORDERED: SODIUM CHLORIDE 0.9% INJ SCH (15:50)
[2016-07-13] MEDS ORDERED: DUONEB (A & A) INH PRN (15:50)
--- NOTE | 2016-07-13 16:27 | CONSULTATION ---
DATE OF CONSULTATION: 07/13/2016 INDICATION: Symptomatic bradycardia. HISTORY OF PRESENT ILLNESS: Ms. Marlow is a 70-year-old white female with a history of coronary disease, diastolic heart failure, atrial fibrillation, COPD, and continued tobacco abuse. She presented for evaluation of feeling lightheaded and dizzy. She has had no recent changes in her medications but continues to have frequent visits to the ER. She took her heart rate via pulse oximetry at home and it was in the 30s and 40s and she subsequently presented for evaluation. Here she seems to be in atrial fibrillation with a slow ventricular response and her digoxin level is significantly elevated. She denies any chest pain. She has her baseline shortness of breath which is chronic and unchanged she has noted some difficulty with falls lately and had an ER visit on the in which she sustained a fall but no significant injuries other than some superficial bruising and lacerations. PAST MEDICAL HISTORY: Significant for: 1. Coronary artery disease with coronary artery bypass grafting. 2. History of cardiomyopathy, thought to be ischemic with most recent EF of 45%. 3. Stroke. 4. Diabetes. 5. Hyperlipidemia. 6. Hypertension. 7. Severe COPD. 8. History of DVTs in the past. 9. Atrial fibrillation. 10. Sleep apnea. SOCIAL HISTORY: Patient continues to smoke quite aggressively. No alcohol use. FAMILY HISTORY: Significant for hypertension. REVIEW OF SYSTEMS: A 10 system review of systems is negative except for those things mentioned in the HPI. PHYSICAL EXAMINATION: Vital signs: She is afebrile. Heart rates seem to be predominantly in the 40s with a blood pressure of 121/58. General: She is in no acute distress. Cardiovascular: She has what seems to be a regular rhythm but a bradycardic rate. No murmur. She has 1+ bilateral lower extremity edema. Chest: Has coarse breath sounds throughout. Abdomen: Soft, nontender, nondistended. She has no obvious organomegaly. Skin Exam: Warm and dry throughout without any rashes. Neurological: He is moving all extremities well. Cranial nerves 2 through 12 are intact without any sensation deficits. Psychiatric: Alert, oriented, pleasant. Normal mood and affect. PERTINENT DATA: Her EKG shows what appears to be atrial fibrillation with a slow ventricular response rate of 42 beats per minute. She has a baseline right bundle branch block. White count 11.1, hematocrit is 34, platelet count is 232,000. Her sodium is 131, potassium 5.8, BUN is 24, creatinine 0.9, magnesium level is 1.3. ProBNP is 4,109 which is down from 7,966 on June 05. Her albumin is 3.3. Digoxin level was 2.3. ASSESSMENT: Symptomatic bradycardia likely secondary to AV amina blocking agents including digoxin, which has likely resulted in digitoxicity. PLAN: Patient has been administered Digibind. In addition, were holding her diltiazem and amiodarone. She seems to be maintaining a blood pressure and presently is minimally symptomatic. I have had at length discussions with her previously regarding hospice and at present she would like to pursue that route considering multiple repetitive hospitalizations. We will continue to follow her in the ICU. Again, she is received Digibind as we speak. cc: Naeem Hernández MD
[2016-07-13] MEDS: PROTONIX IV SCH (16:43)
[2016-07-13] MEDS: NICODERM PATCH TD SCH (16:43)
[2016-07-13] MEDS: HUMALOG DOSE (PARKWAY) SUBQ SCH ×2 (16:57→20:54)
--- NOTE | 2016-07-13 17:42 | HISTORY AND PHYSICAL ---
ATTENDING PHYSICIAN: Dr. Canas. PRIMARY CARE PHYSICIAN: CHIEF COMPLAINT: This is a 70-year-old, female with a history of: 1. Coronary artery disease. 2. Atrial fibrillation. 3. Diastolic heart failure. 4. Chronic obstructive pulmonary disorder. 5. Continued tobacco abuse. HOSPITAL COURSE: She presented to the emergency room complaining of being lightheaded and dizzy and exhausted with minimal exertion. She states this started 2 days ago when she noticed that the least little thing made her feel exhausted. She has fallen quite a few times, or "almost fell" over this time, stating that she just gets weak and cannot keep going or she gets dizzy. Today, she checked her oxygen saturation and her heart rate was in the 30s. So, she presented to the emergency room. In the emergency room, she is in atrial fibrillation with a slow ventricular response with digoxin level that is significantly elevated. She is at baseline with her breathing. At the time of the interview, she denies any chest pain or palpitations. She did have an emergency room visit on the where she sustained a fall, falling back and hitting the back of her head on a concrete sidewalk. She has some superficial bruising and lacerations and a CT of the head was negative. PAST MEDICAL HISTORY: Significant for: 1. Coronary artery disease with coronary artery bypass grafting. 2. Cardiomyopathy with an ejection fraction of 45%. Thought ischemic. 3. Stroke. 4. Diabetes. 5. Hyperlipidemia. 6. Hypertension. 7. Severe chronic obstructive pulmonary disorder. 8. History of deep vein thromboses. 9. Atrial fibrillation. 10. Sleep apnea. SOCIAL HISTORY: 1. She continues to smoke daily. 2. She denies alcohol use. 3. She does live with family members. REVIEW OF SYSTEMS: A 10 point review of systems is negative, except for positives listed in the History of Present Illness. PHYSICAL EXAMINATION: GENERAL: This is a 70-year-old female, who is sitting up in the bed, in no distress. VITAL SIGNS: Blood pressure is 122/48 with a heart rate of 48, respirations are 18, temperature is 97.7 degrees with oxygen saturations of 94-96% on 5 L nasal cannula. CARDIOVASCULAR: Irregular rhythm. Bradycardic. No murmur. PULMONARY: She has coarse breath sounds throughout. Chest does rise and fall symmetrically with respiration. No increased work of breathing noted. GASTROINTESTINAL: Abdomen is soft, nontender, nondistended with bowel sounds in all 4 quadrants. No obvious organomegaly. SKIN: Warm and dry. She does have a bandage to her right forearm that she has from injury from a fall on the . Bandage to her left foot. She has signs of chronic venous stasis on her left martinez. EXTREMITIES: No clubbing, cyanosis. She does have some pretibial edema bilateral with calves nontender and pulses palpable x4. PSYCHIATRIC: She is alert and oriented x3. DIAGNOSTICS: CBC: WBC is 11.1, with a hemoglobin of 10.3, hematocrit 34.4, and platelets of 232,000. INR: 1.41. D-dimer: Less than 0.22. Chem: Sodium is 131, potassium 5.8, CO2 of 24, chloride 92, with a BUN of 24 and a creatinine of 0.9. Glucose is 391, magnesium is 1.3. Cardiac: Troponin is negative on multiple occasions with a CPK of 58 and 54. ProBNP is 4109. Digoxin level: 2.3. TSH: 1.46. IMAGING STUDIES: Chest x-ray: Reveals poor inspiration and worsening of atelectasis to the right middle to lower lung zone. ASSESSMENT: 1. Symptomatic bradycardia, most likely secondary to AV amina blocking agents, including digoxin, digitoxicity. 2. Frequent falls. 3. Diabetes mellitus. 4. Hypertension. 5. Severe chronic obstructive pulmonary disorder. 6. Cardiomyopathy with an ejection fraction of 45%. 7. Right middle lobe to lower lobe atelectasis versus an infiltrate. 8. Leukocytosis. PLAN: 1. She will be admitted to Intensive Care Unit, placed on telemetry. 2. She was given Digibind in the emergency room. We will continue to monitor her rhythm. Of course, we will hold her ischemic digoxin, Cardizem, and any other rate- controlling medications. 3. She was evaluated by Dr. Naeem Hernández of Cardiology and due to her frequent falls, he did discuss with the patient and her daughter stopping anticoagulation and they were all in agreement. So, we will not continue her Eliquis. 4. We will obtain blood cultures and start antibiotics for the infiltrates. 5. We will identify her home medications and continue as appropriate. 6. She has had chronic sacral and left heel ulcers. [facility] We will consult them in the morning. 7. We will continue DuoNebs every 4 hours or every 2 hours p.r.n. 8. Pattern blood glucose with sliding scale insulin. The patient has Home Health through [facility]. She had been on hospice in the past, but because of an incident with [facility], she has become afraid/wary of hospice. Dr. Hernández and I did discuss hospice with the patient and she was willing to go on hospice if she could use [facility]. They will be consulted to meet with the patient and family in the morning. We will repeat labs in the morning. Further treatments pending hospital course. Dictated by KEYON Márquez for Jeancarlos Canas MD cc: KEYON Márquez MD MTDD
[2016-07-13] MEDS ORDERED: CALMOSEPTINE OINTMENT TOP PRN (18:07)
[2016-07-13] MEDS: MERREM 1 GM in NS 50 ML IV SCH (18:20)
[2016-07-13] MEDS: DUONEB (A & A) INH SCH ×2 (19:20→22:55)
[2016-07-13] MEDS: NORCO-7.5 PO PRN (19:27)
[2016-07-13] MEDS: XANAX PO SCH (20:54)
[2016-07-13] MEDS: RANEXA PO SCH (20:54)
[2016-07-13] MEDS: LYRICA PO SCH (20:54)
[2016-07-13] MEDS: ZYVOX PO SCH (20:54)
[2016-07-14] MEDS: MERREM 1 GM in NS 50 ML IV SCH ×3 (01:19→20:57)
[2016-07-14] MEDS: DUONEB (A & A) INH SCH ×6 (02:45→22:50)
[2016-07-14] MEDS ORDERED: SYNTHROID PO SCH (07:00)
[2016-07-14 07:46] LABS: HEMATOCRIT 30.4 % (37.0-47.0); HEMOGLOBIN 8.8 g/dL (12.0-16.0); MCH 22.5 PG (27-31); MCHC 28.9 g/dL (33-37); MCV 77.7 FL (81-99); MPV 10.4 FL (7.4-10.4); RBC 3.91 XMIL (4.2-5.4)
[2016-07-14 07:52] LABS: AGAP 8; BUN 21 mg/dL (8-22); CHLORIDE 99 mmol/L (98-107); COSMO 280; SODIUM 135 mmol/L (136-145); TCO2 28 mmol/L (25-35)
[2016-07-14] MEDS: XANAX PO SCH ×2 (08:46→21:12)
[2016-07-14] MEDS: PRINIVIL PO SCH (08:46)
[2016-07-14] MEDS: RANEXA PO SCH ×2 (08:46→20:58)
[2016-07-14] MEDS: PREDNISONE PO SCH (08:46)
[2016-07-14] MEDS: ZYVOX PO SCH ×2 (08:46→20:58)
[2016-07-14] MEDS: NICODERM PATCH TD SCH (08:47)
[2016-07-14] MEDS: HUMALOG DOSE (PARKWAY) SUBQ SCH ×6 (09:36→23:39)
[2016-07-14] MEDS: LYRICA PO SCH (20:58)
[2016-07-14] MEDS: PROTONIX IV SCH (20:58)
[2016-07-14] MEDS ORDERED: LANTUS INSULIN (PARKWAY) SUBQ SCH (21:00)
[2016-07-15] MEDS: DUONEB (A & A) INH SCH ×6 (03:03→22:49)
[2016-07-15] MEDS: NORCO-7.5 PO PRN ×2 (03:06→08:16)
[2016-07-15] MEDS: MERREM 1 GM in NS 50 ML IV SCH ×3 (03:22→19:56)
[2016-07-15] MEDS: SYNTHROID PO SCH ×2 (06:13)
[2016-07-15] MEDS: HUMALOG DOSE (PARKWAY) SUBQ SCH ×4 (06:13→21:30)
[2016-07-15] MEDS: ZYVOX PO SCH ×2 (08:15→21:31)
[2016-07-15] MEDS: PRINIVIL PO SCH (08:15)
[2016-07-15] MEDS: NICODERM PATCH TD SCH (08:15)
[2016-07-15] MEDS: RANEXA PO SCH ×2 (08:15→21:30)
[2016-07-15] MEDS: XANAX PO SCH ×2 (08:16→21:31)
[2016-07-15] MEDS: PREDNISONE PO SCH (08:16)
[2016-07-15] MEDS ORDERED: LANTUS INSULIN (PARKWAY) SUBQ SCH (08:23)
--- NOTE | 2016-07-15 08:45 | PROGRESS NOTE ---
DATE: 07/15/2016 SUBJECTIVE: Patient notes she feels much better today. She denies any cough, congestion. Denies any shortness of breath. Denies any chest pain or palpitations. Notes that she feels strong enough to attempt to get out of bed. PLAN: We will recheck patient's labs this morning, including a digoxin level. We will continue to follow her blood sugars. She currently is still on Merrem and Zyvox. We will continue Merrem today and hopefully stop in the morning. We will increase her Lantus to 15 units. We will move her out to the floor. Get physical therapy involved. We will continue to hold Eliquis until her physical status has improved. We will recheck a chest x-ray. Further orders as needed. cc: Aneesh White MD
--- NOTE | 2016-07-15 09:12 | PROGRESS NOTE ---
DATE: 07/15/2016 SUBJECTIVE: Patient without new complaints. Notes that she is feeling a little bit better. She is still tired and fatigued. She has not been out of bed yet. OBJECTIVE: Vital signs: Temperature 98, pulse 70, respiratory 20, BP 151/57, saturation 94% on 3 L. General: Patient is awake, alert. She is currently in no respiratory distress. She is pleasant to talk with. Neck: Supple. CV: Regular rate. Chest: Clear and unlabored. Abdomen: Soft. Extremities: Moves all extremities. ASSESSMENT: 1. Symptomatic bradycardia. Appears to be improved. Likely secondary to digoxin which has been held. 2. Frequent falls. Therefore, she is not currently on Eliquis. 3. Diabetes. 4. Hypertension. 5. Severe pulmonary disease. Certainly would be hospice appropriate. 6. Cardiomyopathy with an ejection fraction of 45%. PLAN: We will continue to watch the patient in the ICU today. Her leukocytosis has resolved. Her hyperkalemia has resolved. Glucose is still elevated. Her asymptomatic bradycardia has also improved. Further orders as needed. cc: Aneesh White MD
[2016-07-15 09:38] LABS: HEMATOCRIT 31.9 % (37.0-47.0); HEMOGLOBIN 9.2 g/dL (12.0-16.0); MCH 22.4 PG (27-31); MCHC 28.8 g/dL (33-37); MCV 77.8 FL (81-99); MPV 10.2 FL (7.4-10.4); RBC 4.1 XMIL (4.2-5.4)
[2016-07-15 10:00] LABS: AGAP 9; ALBUMIN 3.1 g/dL (3.5-5.0); ALKALINE PHOSPHATASE 68 U/L (32-104); BUN 18 mg/dL (8-22); CALCIUM 8.3 mg/dL (8.8-10.2); CHLORIDE 99 mmol/L (98-107); COSMO 287; GOT 14 U/L (10-30); GPT 17 U/L (10-36); MAGNESIUM 1.7 mg/dL (1.5-2.7); POTASSIUM 4.4 mmol/L (3.5-5.1); SODIUM 136 mmol/L (136-145); TCO2 29 mmol/L (25-35); TOTAL PROTEIN 5.5 g/dL (6.3-8.3)
[2016-07-15] MEDS ORDERED: XANAX PO PRN (10:24)
[2016-07-15] MEDS ORDERED: NORCO-7.5 PO PRN (10:24)
[2016-07-15] MEDS ORDERED: PROTONIX PO SCH (21:00)
[2016-07-15] MEDS: LYRICA PO SCH (21:31)
[2016-07-16] MEDS: MERREM 1 GM in NS 50 ML IV SCH (03:11)
[2016-07-16] MEDS: DUONEB (A & A) INH SCH ×3 (03:46→11:21)
[2016-07-16] MEDS: SYNTHROID PO SCH ×2 (06:08)
[2016-07-16] MEDS ORDERED: PRINIVIL PO SCH (06:23)
[2016-07-16] MEDS: HUMALOG DOSE (PARKWAY) SUBQ SCH ×2 (06:35→12:47)
[2016-07-16] MEDS ORDERED: PERICOLACE PO PRN (07:46)
[2016-07-16] MEDS ORDERED: GLUCOPHAGE PO SCH (08:00)
--- NOTE | 2016-07-16 08:12 | Diag Imaging Result Doc PS360 ---
CHEST-PORTABLE - 07/16/2016 INDICATION: HYPOXIA TECHNIQUE: COMPARISON: 07/13/2016 FINDINGS: Stable CABG changes. Stable mild cardiomegaly. Stable linear atelectasis or scarring in the right midlung and left lung base. Pulmonary vascularity remains top normal. No overt infiltrates or effusion. IMPRESSION: No significant change from prior. Electronically signed by Juventino Bond 07/16/2016 8:09 AM
[2016-07-16] MEDS: RANEXA PO SCH (08:54)
[2016-07-16] MEDS: PREDNISONE PO SCH (08:54)
[2016-07-16] MEDS: ZYVOX PO SCH (08:54)
[2016-07-16] MEDS: XANAX PO SCH (08:55)
[2016-07-16] MEDS: NICODERM PATCH TD SCH (08:55)
[2016-07-16] MEDS ORDERED: SANTYL OINT TOP SCH (09:00)
[2016-07-16] MEDS ORDERED: SYNTHROID PO SCH (09:00)
[2016-07-16] MEDS ORDERED: PRILOSEC PO SCH (09:00)
[2016-07-16] MEDS ORDERED: RANOLAZINE 1000 MG PO SCH (09:00)
[2016-07-16] MEDS ORDERED: ZITHROMAX PO SCH (09:00)
[2016-07-16] MEDS ORDERED: ASPIRIN PO SCH (09:00)
[2016-07-16] MEDS ORDERED: OMNICEF PO SCH (09:00)
[2016-07-16 12:01] VITALS: BP 153/56
[2016-07-16] MEDS ORDERED: LIPITOR PO SCH (21:00)
[2016-07-16] MEDS ORDERED: DETROL PO SCH (21:00)
--- NOTE | 2016-07-18 05:20 | DISCHARGE SUMMARY ---
ADMISSION DATE: 07/13/2016 DISCHARGE DATE: 07/16/2016 DISCHARGE DIAGNOSES: 1. Symptomatic bradycardia, resolved. 2. Frequent falls. 3. Diabetes. 4. Hypertension. 5. Severe chronic obstructive pulmonary disease. 6. Cardiomyopathy, with an ejection fraction of 45%. 7. Leukocytosis, resolved. CONSULTATIONS: None. PROCEDURES: None. BRIEF HOSPITAL COURSE: The patient was admitted to the hospital. It was felt as though her amiodarone, Cardizem, and digoxin was the cause of her syncopal episode. These were held during the hospital. Her heart rate elevated. She had no further complications. She was able to ambulate the mc without any difficulty while off of these medications. Also, she was noted to have elevated blood pressure. Her SAPPHIRE inhibitor was increased to 10 mg lisinopril. She eventually was changed over from antibiotics to Omnicef and azithromycin p.o., which she tolerated very well. On discharge, she was awake, alert. She was in no distress, and she was asking to go home. DISPOSITION: The patient will be discharged home. She will continue to hold her amiodarone, Cardizem, and digoxin until she follows up outpatient with the primary care provider and with her fire observer. These are likely the cause of her symptomatic bradycardia, which caused her to have a syncopal episode prior to the hospital stay. She has a known history of atrial fibrillation, but she currently is sinus. It does appear that she may have developed a pneumonia while she was in the hospital, and therefore she was started on antibiotics. She was switched over to Omnicef and azithromycin, which she tolerated very well. On discharge, her leukocytosis was gone. She was feeling better. TIME SPENT: 35 minutes was spent in discharge planning and instructions. cc: Aneesh White MD
--- NOTE | 2016-07-31 02:34 | PROVIDER DOCUMENTATION ---
This chart was entered by Mickie Quiros Scribe, acting as scribe for Lul Gillespie MD. HPI-General Adult - General Chief Complaint: Weakness Stated Complaint: sob Time Seen by Provider: 07/13/16 11:47 Source: patient, EMS Allergies/Adverse Reactions: Patient Allergies Allergy/AdvReac Type Severity Reaction Status Date / Time Penicillins Allergy Mild RASH Verified 06/04/16 14:37 codeine [Codeine] Allergy Unknown Verified 06/04/16 14:37 metronidazole [From Flagyl] Allergy Unknown Verified 06/04/16 14:37 Metronidazole HCl * Allergy Unknown Verified 06/04/16 14:37 [From Flagyl] Sulfa (Sulfonamide Allergy Unknown Verified 06/04/16 14:37 Antibiotics) [Sulfa(Sulfonamide Antibiotics)] benzathine Allergy Unknown Uncoded 06/04/16 14:37 Home Medications: Home Medication List Medication Instructions Recorded Confirmed Last Taken Type Albuterol Sulfate [Proair Hfa] 2 puff IH PRN PRN 01/14/16 06/04/16 1 Day Ago History Dicyclomine [Bentyl] 10 mg PO BID 01/14/16 06/04/16 06/04/16 08:00 History 10 mg Furosemide [Lasix] 60 mg PO BID 01/14/16 06/04/16 06/04/16 08:00 History 60 mg Hydroxyzine HCl 25 mg PO Q6H PRN PRN 01/14/16 06/04/16 1 Day Ago History Levothyroxine [Synthroid] 175 microgm PO DAILY 01/14/16 06/04/16 06/04/16 07:00 History 175 mcg Metformin HCl 1,000 mg PO BID 01/14/16 06/04/16 06/04/16 08:00 History 1000 mg Nitroglycerin [Nitrostat] 0.4 mg SL PRN PRN 01/14/16 06/04/16 04/18/16 History Omeprazole 20 mg PO DAILY 01/14/16 06/04/16 06/04/16 08:00 History 20 mg Ondansetron [Zofran] 4 mg PO Q8H PRN PRN 01/14/16 06/04/16 1 Day Ago History Polyethylene Glycol 3350 17 gm PO QHS 01/14/16 06/04/16 06/03/16 20:00 History 17 gm Ranolazine [Ranexa] 1,000 mg PO BID 01/14/16 06/04/16 06/04/16 08:00 History 1000 mg Sennosides/Docusate Sodium [Senna 4 tab PO BID PRN 01/14/16 06/04/16 1 Day Ago History Plus Tablet] Atorvastatin Calcium [Lipitor] 80 mg PO QHS 02/07/16 06/04/16 06/03/16 20:00 History 80 mg Sucralfate [Carafate] 1 gm PO 4XDAY 02/07/16 06/04/16 06/04/16 08:00 History 1 gm Aspirin 81 mg PO DAILY #0 chewtab 02/08/16 06/04/16 06/04/16 08:00 Rx 81 mg Alprazolam 0.5 mg PO BID PRN 03/18/16 06/04/16 06/04/16 08:00 History 0.5 mg Insulin Glargine [Lantus] 30 unit SUBQ QHS 03/18/16 06/04/16 06/03/16 20:00 History 30 units Metoclopramide HCl [Reglan] 5 mg PO TID PRN 03/18/16 06/04/16 04/18/16 History Potassium Chloride 10 meq PO DAILY 03/18/16 06/04/16 06/04/16 08:00 History 10 meq Tolterodine [Detrol] 4 mg PO HS 03/18/16 06/04/16 06/03/16 20:00 History 4 mg Benzonatate 200 mg PO Q4H PRN 04/19/16 06/04/16 1 Day Ago History LISINOpril [Prinivil] 5 mg PO DAILY 04/19/16 06/04/16 06/04/16 08:00 History 5 mg Levalbuterol Neb [Xopenex Neb] 1.25 mg INH Q4H PRN PRN 04/19/16 06/04/16 1 Day Ago History Megestrol Acetate [Megace] 40 mg PO DAILY 04/19/16 06/04/16 06/04/16 08:00 History 40 mg Acetaminophen [Tylenol] 500 - 1,000 mg PO Q6H PRN PRN 05/31/16 06/04/16 Unknown History Apixaban [Eliquis] 5 mg PO BID 05/31/16 06/04/16 06/04/16 08:00 History 5 mg Collagenase Clostridium Hist. 250 units TP DAILY 05/31/16 06/04/16 06/04/16 08: 00 History [Santyl] 1 application Fluticasone/Salmeterol [Advair 1 each IH BID 05/31/16 06/04/16 Unknown History 250-50 Diskus] Nystatin Susp [Mycostatin Susp] 5 ml PO 4XDAY 05/31/16 06/04/16 05/30/16 History [place]-3 Fatty Acids/Fish Oil [Fish 1 each PO BID 05/31/16 06/04/16 06/04/16 08: 00 History Oil 1,000 mg Capsule] 1 tab Ondansetron [Zofran Odt] 4 mg PO Q8H PRN 05/31/16 06/04/16 Unknown History Oxycodone HCl/Acetaminophen 1 each PO Q6-8H PRN PRN 05/31/16 06/04/16 1 Day Ago History [Percocet 5-325 mg Tablet] Prednisone 40 mg PO DAILY 05/31/16 06/04/16 06/04/16 08:00 History 20 mg Pregabalin [Lyrica] 75 mg PO QHS 05/31/16 06/04/16 06/03/16 20:00 History 75 mg Tiotropium [place] Inhaler 18 mcg IH DAILY 05/31/16 06/04/16 06/04/16 08:00 History [Spiriva] 18 mcg Digoxin [Lanoxin] 125 microgm PO DAILY #30 tablet 06/07/16 Unknown Rx Diltiazem C.d. [Cardizem C.d] 240 mg PO DAILY #30 capsule 06/07/16 Unknown Rx Metronidazole [Flagyl] 500 mg PO TID #36 tablet 06/07/16 Unknown Rx - History of Present Illness -Gen Adult Nature of Presenting Problems: 70 yo F presents to the ER with complaint of SOB, bradycardia, and feeling like she was smothering and a heaviness in her chest since waking up this morning. Has pitting edema to bilat LE. Wears 3L O2 at home. Complains of generalized weakness. Onset/Duration: reports: this morning Associated Symptoms: reports: shortness of breath, weakness. denies: chest pain Review of Systems - Adult - REVIEW OF SYSTEMS - ADULT Constitutional: denies: chills, fever Eyes: reports: no symptoms reported Ears, Nose, Mouth & Throat: reports: no symptoms reported Cardiovascular: reports: edema, irregular heart rate. denies: chest pain, palpitations Respiratory: reports: shortness of breath. denies: cough Gastrointestinal: denies: abdominal pain, diarrhea, nausea, vomiting Genitourinary: reports: no symptoms reported Musculoskeletal: reports: no symptoms reported Integumentary: reports: skin thickening. denies: itching Neurological: denies: dizziness/vertigo, headache/migraines Psychiatric: reports: no symptoms reported Endocrine: reports: no symptoms reported Hematologic/Lymphatic: reports: no symptoms reported Allergic/Immunologic: reports: no symptoms reported All Other Systems: Reviewed and Negative Past History - Adult - PAST MEDICAL HISTORY-ADULT Review of Records: reports: Nursing Assessment Review, Medications Reviewed Cardiovascular: reports: CAD, CHF, HTN, OR Respiratory: reports: asthma, COPD (end stage), other (O2 dependent) Musculoskeletal: reports: intervertebral disc disease, osteoporosis Neurological: reports: CVA Psychiatric: reports: anxiety Endocrine/Immune: reports: Diabetes, thyroid disorder Additional History: 3L of home O2 - PRIOR SURGERIES/PROCEDURES Surgical/Procedure History: reports: CABG, cholecystectomy, hysterectomy, joint replacement, breast - PRIOR HOSPITALIZATIONS Prior Hospitalizations: reports: psychiatric or rehab (rehab 2 mos ago) - IMMUNIZATION STATUS Childhood Immunizations: See Nurse Assessment Flu Vaccine: See Nurse Assessment Physical Exam-General - PHYSICAL EXAM-ADULT Initial Vital Signs Reviewed: Yes - CONSTITUTIONAL General Appearance: alert, no apparent distress - EYES Eyes: PERRL/EOMI, pink conjunctivae - HEAD, EARS, NOSE, MOUTH & THROAT HENMT: normocephalic/atraumatic, normal ENT inspection - NECK Neck: supple, normal inspection - RESPIRATORY Respiratory: no respiratory distress, no accessory muscle use, increased rate - CARDIOVASCULAR Cardiovascular: normal peripheral pulses, bradycardia. negative: no edema - GASTROINTESTINAL (ABDOMEN) Abdominal Exam: normal bowel sounds, non tender, soft, hernia - MUSCULOSKELETAL Back Exam: no CVA tenderness, no vertebral tenderness Extremity: normal gait, normal inspection - SKIN Integumentary: warm/dry, swelling (pitting edema bilat LE), other (stasis dermatitis, bilat LE) - NEUROLOGIC Neurologic: grossly normal, no motor/sensory deficits - PSYCHIATRIC Psych/Mental Status: normal mood/affect, normal thought content, normal thought process, oriented x 3 Progress - PLAN OF CARE/RESULTS Progress/Plan/Lab Results: Vital Signs - 8 hr 07/13/16 11:32 Pulse Rate 46 L Respiratory Rate 23 Blood Pressure 107/72 O2 Sat by Pulse Oximetry 89 L Orders Category Date Time Status Cardiac Monitoring DIRECTED Care 07/13/16 11:41 Active Saline Loc NOW Care 07/13/16 11:41 Active CHEST-2 VIEWS [RAD] Stat Exams 07/13/16 11:41 Ordered ABG [RESP] Routine Lab 07/13/16 11:42 Ordered CBC WITH ELECTRONIC DIFF [HEME] Stat Lab 07/13/16 11:41 Ordered CK PROFILE [SP CHEM] Stat Lab 07/13/16 11:41 Ordered COMPREHENSIVE METABOLIC PANEL [CHEM] Stat Lab 07/13/16 11:[address] Or[address] D-DIMER PL [COAG] Stat Lab 07/13/16 11:41 Ordered DIGOXIN [TDM] Stat Lab 07/13/16 11:46 Ordered MAGNESIUM [CHEM] Stat Lab 07/13/16 11:41 Ordered PRO B-NATRIURETIC PEPTIDE Stat Lab 07/13/16 11:41 Ordered PROTIME WITH INR PL [COAG] Stat Lab 07/13/16 11:[address] [COAG] Stat Lab 07/13/16 11:41 Ordered TROPONIN T Stat Lab 07/13/16 11:41 Ordered TSH Stat Lab 07/13/16 11:46 Ordered EKG [EKG] Stat Ther 07/13/16 11:41 Ordered Result Diagrams: 07/13/16 11:50 07/13/16 11:50 - EKG 1 Time of EKG reading by physician:: 11:35 EKG Read and Signed by:: Lul Gillespie EKG Interpretation (*Must complete 3 of following elements*): Abnormal Rate: 45 Rhythm: wide QRS rhythm [place]: left QRS: RBB, LVH (with repolarization abnormality) [place] Interval: normal ST Wave: normal Prior EKG Comparison: changes noted 2 Time of EKG reading by physician:: 13:59 EKG Read and Signed by:: Lul Gillespie EKG Interpretation (*Must complete 3 of following elements*): Abnormal Rate: 42 Rhythm: wide QRS rhythm [place]: normal QRS: RBB, LVH (with repolarization abnormality) [place] Interval: normal ST Wave: normal Prior EKG Comparison: changes noted Comments: L anterior fasicular block, bifascicular block - XRAY 1 XRAY Study: Chest Impression: See EMR Report (poor inspiration and worsening of atelectasis in the R mid to lower lung zone, essentially stable chest otherwise, per radiologist) - CONSULTS/PCP/HOSPITALIST Notification #1 *Consult/PCP/Hospitalist*: Dr. Hernández (plan rep) Time Discussed: 13:28 Consult Disposition: Will see in ED #2 Consult: Dr. Canas Time Discussed: 14:34 Consult Disposition: Admit Departure - Departure Date of Disposition Decision: 07/13/16 Time of Disposition Decision: 15:20 DIAGNOSIS: Ischemic heart disease, Bradyarrhythmia COPD (chronic obstructive pulmonary disease) Qualifiers: COPD type: unspecified COPD Qualified Code(s): J44.9 - Chronic obstructive pulmonary disease, unspecified Heart failure Qualifiers: Heart failure type: unspecified heart failure type Heart failure chronicity: unspecified heart failure chronicity Qualified Code(s): I50.9 - Heart failure, unspecified Disposition: ADMITTED INPATIENT 09 Certified Medical Emergency: Emergent Condition: Stable - Critical Care Note This patient required my direct & personal management of CC.: No This chart was documented by the indicated scribe, (Mickie Quiros Scribe) and accurately reflects the services I performed and decisions made by me, Lul Gillespie MD, as attested by the provider's signature.
== END 2016-07-16 13:40 | disposition home health service (06) ==
LOC: SUPCPDRO → P.ED 11:32 → P.ICU 15:19 → SUATTDRO 15:19 → P.MEDSURG 07-15 10:21
PROVIDERS: ATTEND Family Medicine